=== PATIENT | male | born 1945 | race Caucasian/White ===

== ENCOUNTER 2022-09-23 21:00 | Inpatient (IN) | payer MEDICARE, OTHER, SELFPAY ==
--- NOTE | ~2022-09-23 | XR_ITS ---
EXAMINATION: XR chest 1V portable DATE: 09/24/2022 09:11 INDICATION: Shortness of breath. TECHNIQUE: A single frontal view of the chest was obtained. COMPARISON: Chest single view 09/23/2022, CT abdomen and pelvis 09/23/2022 FINDINGS: There is mild elevation of right hemidiaphragm. There is a diffuse interstitial pattern in the lungs, consistent mild pulmonary edema. There is mild atelectasis in right lower lung zone. No pl eural effusion or pneumothorax. The heart size is normal. IMPRESSION: 1. Mild pulmonary edema. 2. Mild elevation of right hemidiaphragm with mild atelectasis in right lower lung zone. Reviewed, dictated and finalized at location A. IMPRESSION: 1. Mild pulmonary edema. 2. Mild elevation of right hemidiaphragm with mild atelectasis in right lower l gene zone.
--- NOTE | ~2022-09-23 | XR_ITS ---
XR chest 1V portable 09/25/2022 09:14 Indication: Hypoxia. Shortness of breath. Procedure: AP portable chest Comparison: 09/24 and 09/23/2022 Findings: Shallow inspiration with crowding of the pulmonary vessels. There are infiltrates of the ri ght mid and lower lung which may represent atelectasis and/or pneumonia. No acute osseous abnormality . No pneumothorax. Possible small right effusion. Elevated right diaphragm is unchanged. Impression: 1: Infiltrates of the right mid and lower lung which may represent atelectasis or pneumonia. 2: Possible small right effusion. Elevated right diaphragm. Reviewed, dictated and finalized at location A. Impression: 1: Infiltrates of the right mid and lower lung which may represent atelectasis or pneumonia. 2: Possible small right effusion. Elevated right diaphragm.
--- NOTE | ~2022-09-23 | CT_ITS ---
EXAMINATION: CT abdomen pelvis w con INDICATION: Right-sided abdominal pain TECHNIQUE: Computed tomographic images of the abdomen and pelvis were obtained after the administrati on of 100 cc of Omnipaque 350 intravenous contrast. The dose-length product (DLP) was 1518.15 mGy-cm. Automated exposure control and iterative reconstruction technique were employed. COMPARISON: None available FINDINGS: Minimal dependent atelectasis is present in the lung bases. The heart size is normal. There is calcified coronary artery atherosclerosis. The liver is diffusely low in attenuation when compare d with the spleen, consistent with hepatic steatosis. The gallbladder is distended. There is perichol ecystic inflammatory change. The spleen, pancreas, and adrenal glands are normal. The kidneys are unr emarkable. No pathologically enlarged abdominal or pelvic lymph nodes are identified. No free intrape ritoneal gas or evidence of bowel obstruction. There is a small volume of pelvic ascites. The appendi x is normal. There is severe lumbar spondylosis. IMPRESSION: 1. CT findings consistent with acute cholecystitis. Reviewed, dictated and finalized at location F.
--- NOTE | ~2022-09-23 | US_ITS ---
EXAMINATION: US perc cholecystostomy w imag DATE: 09/24/2022 14:34 INDICATION: Acute cholecystitis. TECHNIQUE: The procedure including the risks, benefits, and alternatives was discussed with the patie nt. Risks discussed included bleeding and infection. Oral and written consent were obtained. A time out was performed to verify the patient's name, date of , and procedure to be performed. The sk in overlying the liver and gallbladder was prepped and draped in usual sterile fashion. Anesthetic w as administered with 1% lidocaine subcutaneously. An 8.5 Fr catheter was inserted into the gallbladd er by trocar technique. The metal stiffener and trocar needle were removed, and the pigtail tip was l ocked. Bile was aspirated and sent for culture. The catheter was stitched to the skin with suture. Th ere were no immediate complications. FINDINGS: Ultrasound images demonstrate the catheter within the gallbladder. 8 mL bile was aspirated. IMPRESSION: 1. Successful ultrasound-guided cholecystostomy tube placement. 2. 3 mL brown bile was sent for aerobic and anaerobic cultures. 3. A catheter cholangiogram may be performed not less than 48 hours after tube placement if clinicall y indicated to assess cystic duct patency. If cholecystectomy is not eventually performed and the inf ectious episode has resolved, the tube may be removed over a guidewire, preferably not less than 3 we eks after placement to allow time for a mature catheter tract to form to prevent bile leakage and per itonitis. Reviewed, dictated and finalized at location A. IMPRESSION: 1. Successful ultrasound-guided cholecystostomy tube placement. 2. 3 mL brown bile was sent for aerobic and anaerobic cultures. 3. A catheter cholangiogram may be performed not less than 48 hours after tube placement if clinically indicated to assess cystic duct patency. If cholecystec alfred is not eventually performed and the infectious episode has resolved, the t ube may be removed over a guidewire, preferably not less than 3 weeks after ovidio cement to allow time for a mature catheter tract to form to prevent bile leakag e and peritonitis.
--- NOTE | ~2022-09-23 | XR_ITS ---
EXAMINATION: XR chest 1V INDICATION: Right-sided abdominal pain TECHNIQUE: AP view of the chest is obtained. COMPARISON: None available FINDINGS: There is mild atelectasis of the lung bases. No pleural effusion or pneumothorax. The cardi omediastinal silhouette is normal. IMPRESSION: 1. Mild atelectasis of the lung bases. Reviewed, dictated and finalized at location F.
[2022-09-23 21:03] VITALS: BP 121/58; PULSE 112; RESP 22; TEMP 36.3; O2SAT 93
[2022-09-23 21:19] LABS: Basophils Percent Auto 0.2 % (0.2-1.2); Hematocrit 42.2 % (42.0-52.0); Hemoglobin 13.6 g/dL (14.0-18.0); Immature Granulocyte Percent A 0.5 % (0-0.5); Lymphocytes Absolute Auto 0.94 K/mm3 (0.9-3.2); Lymphocytes Percent Auto 5.1 % (18.3-44.2); Mean Corpuscular HGB Conc 32.2 g/dl (32-36); Mean Corpuscular Hemoglobin 29.8 pg (26-34); Mean Corpuscular Volume 92.3 fl (80-100); Monocytes Absolute Auto 0.9 K/mm3 (0.1-0.6); Monocytes Percent Auto 4.6 % (2.6-8.5); Neutrophils Absolute Auto 16.6 K/mm3 (1.3-6.7); Neutrophils Percent Auto 89.6 % (45.5-73.1); Platelet Count Result 238 k/mm3 (150-375); Red Blood Count 4.57 M/mm3 (4.6-6.20); White Blood Count 18.5 K/mm3 (4.5-10.0)
[2022-09-23 21:38] LABS: Alanine Aminotransferase 31 U/L (6-50); Albumin Level 4.1 g/dL (3.5-5.1); Alkaline Phosphatase 46 U/L (38-126); Anion Gap 8 mmol/L (8-16); Aspartate Amino Transferase 28 U/L (17-59); Bilirubin,Total 1.3 mg/dL (0.2-1.3); Blood Urea Nitrogen 12 mg/dL (9-20); Calcium 8.6 mg/dL (8.4-10.2); Carbon Dioxide 26 mmol/L (22-30); Chloride 97 mmol/L (98-107); Estimated CRCL calculation 112 ml/min; Estimated Glomerular Filt Rate > 60; Glucose 234 mg/dL (65-110); Lipase 113 U/L (23-300); Potassium 4.3 mmol/L (3.4-5.0); Sodium 131 mmol/L (137-145)
--- NOTE | 2022-09-23 22:01 | PC.NURSE ---
Pt c/o ongoing right sided abdominal pain, bloating, and nausea. Pt was evaluated at [facility] yesterday and sent home with curly and dayanna. Pt states he came in tonight because the pain hasn't improved and states pt became sweaty and seemed like he was breathing heavily. Abdomen appears distended and is firm on palpation. Bowel sounds heard in all quadrants. Last BM was two days ago. Pt denies any vomiting today. Denies fevers.
--- NOTE | 2022-09-23 22:12 | ECG_ITS ---
Measurements Intervals [place] Rate: 112 P: 43 AL: 155 QRS: 24 QRSD: 97 T: 29 QT: 340 QTc: 466 Interpretive Statements SINUS TACHYCARDIA POOR R-WAVE PROGRESSION BORDERLINE ECG NO PREVIOUS ECG AVAILABLE FOR COMPARISON Electronically Signed On 09-24-2022 12:42:14 CDT by Mikael Patel M.D.
[2022-09-23 22:23] LABS: Magnesium 1.6 mg/dL (1.6-2.3)
[2022-09-23] MEDS: SODIUM CHLORIDE 0.9% IV 2,000 ML 999 ML IV CONT (22:42)
[2022-09-23 22:52] LABS: INR 1.3; Prothrombin Time 16.4 Seconds (11.1-14.7)
[2022-09-23 22:53] LABS: Partial Thromboplastin Time 31.7 SECONDS (22.3-36.8)
[2022-09-23 22:59] VITALS: BP 159/75; PULSE 108; RESP 30; O2SAT 95
[2022-09-23] MEDS: HYDROmorphone HCL INJ (*CRX) 1 MG/ML SYR 0.5 MG IV PUSH (23:18)
[2022-09-23] MEDS: PIPERACILLN/TAZ 3.375GM/NS50ML 3.375 GM/50 ML BAG IVPB (23:19)
[2022-09-23 23:23] VITALS: BP 155/77; PULSE 104; RESP 26; O2SAT 96
[2022-09-23 23:26] LABS: Appearance Urine Clear (Clear); Bilirubin Urine Negative (Negative); Blood Urine Negative (Negative); Color Urine Yellow (Yellow); Glucose Urine UA Trace mg/dL (Negative); Ketones Urine Trace mg/dL (Negative); Leukocyte Esterase Ur Negative LEU/UL (Negative); Nitrate Urine Negative (Negative); Protein Urine 1+ mg/dL (Negative); pH Urine 5.5 (5.0-9.0)
[2022-09-23 23:28] LABS: Specific Grav Ur >= 1.099 (1.001-1.035)
--- NOTE | 2022-09-23 23:28 | ED.GENADULT ---
HPI - General Adult General Chief complaint: Abdominal Pain Stated complaint: abd pain Time Seen by Provider: 09/23/22 21:33 History of Present Illness HPI narrative: this is a 77-year-old male presenting ED with chief complaint of right upper quadrant abdominal pain. It started yesterday he was actually seen at [place] where he received lab work and a CT scan was discharged. However has proceeded to get worse. with his in the right upper quadrant, day 8 out 10 intensity and constant. He has never experienced pain like this for now exacerbating alleviating factors. It is associated with nausea and vomiting. last BM was 3 days ago, he is still passing gas. Related Data Home Medications Medication Instructions Recorded Confirmed apixaban 5 mg tablet (Eliquis) mg 09/24/22 gabapentin 600 mg tablet mg 09/24/22 lisinopril 10 mg tablet mg 09/24/22 metformin 500 mg tablet mg 09/24/22 Allergies Allergy/AdvReac Type Severity Reaction Status Date / Time No Known Allergies Allergy Verified 09/23/22 22:42 Exam Narrative: APPEARANCE: No apparent distress. Head: atraumatic. EYES: EOMI, NOSE: Atraumatic NECK: Trachea midline RESPIRATORY: No increased rate of breathing, ctab CARDIOVASCULAR: RRR, ABDOMINAL: Tenderness palpation in the right upper quadrant, voluntary guarding, no rebound tenderness MUSCULOSKELETAl: No obvious deformities NEURO: Alert. Moving 4/4 extremities SKIN:: Warm, dry. Normal color PSYCHIATRIC: Normal affect Course Vital Signs Vital signs: Vital Signs Temperature 97.4 F L 09/23/22 21:03 Pulse Rate 112 H 09/23/22 21:03 Respiratory Rate 22 H 09/23/22 21:03 Blood Pressure 121/58 L 09/23/22 21:03 Pulse Oximetry 93 09/23/22 21:03 Oxygen Delivery Room Air 09/23/22 21:03 Temperature 97.4 F L 09/23/22 21:03 Pulse Rate 104 H 09/23/22 23:23 Respiratory Rate 26 H 09/23/22 23:23 Blood Pressure 155/77 H 09/23/22 23:23 Pulse Oximetry 96 09/23/22 23:23 Oxygen Delivery Nasal Cannula 09/23/22 22:59 Oxygen Flow Rate 2 09/23/22 22:59 Medical Decision Making [facility] Narrative Medical decision making narrative: -Presentation: 77-year-old male presenting with 2 days of right sided abdominal pain. Abdominal lab work and CT abdomen pelvis have been ordered. Patient given 2 L of normal saline. 0.5 mg Dilaudid for pain -DDX includes but is not limited to: Cholecystitis/gallbladder disease, appendicitis, gastritisenteritis, -Co-morbidities complicating care: Parkinson's, CAD, HTN, DM, HL, P-Afib on eliquis (Last dose 24 hrs ago) -Social determinants of health: Retired -External Chart Review: none -Hx from independent Sources: family bedside -Discussion of Management/Consultants:Shona- Surgery, Melina - Hospitalist -Independent interpretation of studies: white count is 18.5. Metabolic panel showed slight hyponatremia and hypochloremia. Patient has been fluid resuscitated. Urine was not indicative of infection. Chest x-ray showed mild atelectasis in the lung bases. Independent EKG interpretation: Rhythm [sinus], Rate [112], [place] -[normal], ME -[normal], QRS [narrow], QTC [normal], T waves -[negative for concerning inversions], ST Segments - [Negative for concerning elevations] Final interpretations: sinus tachycardia CT abdomen pelvis was consistent with acute cholecystitis. Patient started on Pip/tazo Dx tests considered but not ordered: -Procedures: -Interventions: 2 L normal saline, 0.5 mg Dilaudid, pip/tazo -Shared decision making / Disposition: patient will be admitted to the hospital for further management of acute cholecystitis. -RX Vital Signs Vital Signs: Vital Signs Temperature 97.4 F L 09/23/22 21:03 Pulse Rate 112 H 09/23/22 21:03 Respiratory Rate 22 H 09/23/22 21:03 Blood Pressure 121/58 L 09/23/22 21:03 Pulse Oximetry 93 09/23/22 21:03 Oxygen Delivery Room Air 09/23/22 21:03 Temperature
[2022-09-23 23:29] LABS: Add Urine Microscopic? NO
[2022-09-24] VITALS (32 sets, daily range): BP systolic 106–174; BP diastolic 60–105; PULSE 88–156; RESP 16–44; TEMP 36.1–39.9; O2SAT 80–99; BMI 38.7
--- NOTE | 2022-09-24 | ECHO_ITS ---
Patient Info Name: Ted Barboza Age: 77 years : 1945 Gender: Male Ht: 69 in Wt: 262 lbs BSA: 2.46 m2 HR: 108 bpm BP: 153 / 105 mmHg Heart Rhythm: Sinus Rhythm Technical Quality: Fair Exam Date: 09/24/2022 10:58 AM Exam Location: [facility] Pulmonary Exam Room: ICU3 Patient Status: Inpatient Admit Date: 09/24/2022 Staff Ordering Physician: Hugo Gaxiola MD Pomologist: Allison Jackson RDCS Attending Provider: Tracy Summers DO Exam Type: CA echo dop color flow w con Study Info Indications - CHF ACUTE RESP FAILURE Complete two-dimensional, color flow and Doppler transthoracic echocardiogram is performed with contrast to opacify the left ventricle and to improve the deliniation of the left ventricle endocardial borders. Contrast/Agitated Saline Contrast/Ag. Saline: Definity Amount: 2.00 ml Administered By: Allison Jackson [facility] Existing IV Access: Yes IV Access Condition: patent with no signs of infiltration Summary 1. Technically difficult examination, definity contrast used to improve visualization. 2. Normal left ventricular size with mildly reduced global systolic function ejection fraction 45-50%. 3. Sclerotic but nonstenotic aortic valve. 4. Mildly enlarged left atrium. Left Ventricle Left ventricular chamber dimension is normal. Left ventricular systolic function is mildly reduced, estimated at 45-50%. The left ventricular diastolic function is grade I diastolic dysfunction. Right Ventricle Right ventricular chamber dimension is normal. Left Atria Left atrial chamber dimension is mildly enlarged. Right Atria Right atrial chamber dimension is normal. Aortic Valve The aortic valve is trileaflet. There is mild aortic valve sclerosis. Pulmonic Valve The pulmonic valve is not well visualized. Mitral Valve The mitral valve has normal leaflets. Tricuspid Valve The tricuspid valve leaflets are not well visualized. Pericardium/Pleural The pericardium appears normal. Aorta The aortic root size at the sinus of Valsalva is normal. Left Ventricular Outflow Tract Name Value Normal LVOT 2D LVOT Diameter 2.05 cm LVOT Doppler LVOT Peak Gradient 5 mmHg LVOT Mean Gradient 4 mmHg LVOT VTI 19.06 cm LVOT VTI/AV VTI Ratio 1.06 LVOT Stroke Volume 63.11 ml LVOT CO 18.26 l/min LVOT CI 7.43 L/min/m2 Pulmonic Valve Name Value Normal RVOT Doppler RVOT Peak Gradient 1 mmHg PV Doppler PV Peak Gradient 2 mmHg Mitral Valve Name Value Normal
--- NOTE | 2022-09-24 01:46 | ADMGEN ---
This patient, Ted Louis, was admitted to Medical Room 250-01. Patient/family oriented to hospital policies and general routines including ID bracelet, bed and alarms, visiting hours, pain management, procedures, bathroom and other care routines, personal items, smoking policy, room service/diet, and visiting hours. Information on how to activate the Rapid Response Team has been discussed. Patient/Family are encouraged to report perceived risks to care and to ask questions if they do not understand what they are told or what they should do.
[2022-09-24] MEDS: SODIUM CHLORIDE 0.9% IV 1,000 ML 999 ML IV CONT (02:30)
[2022-09-24] MEDS: SODIUM CHLORIDE 0.9% IV 1,000 ML 100 ML IV CONT (03:31)
--- NOTE | 2022-09-24 04:27 | PM.IMHP ---
H&P: HPI History of Present Illness Date/Time: 09/24/22 04:27 Chief Complaint: Abdominal pain Narrative: 77-year-old male with a past medical history of paroxysmal atrial fibrillation, chronic anticoagulation, coronary disease,COPD, type 2 diabetes mellitus, and untreated obstructive sleep apnea who presented to the ER from home via private vehicle due to right-sided abdominal pain. The patient reports that he has been having right-sided abdominal pain for 5-6 days. He went to [place] [facility] on Tuesday night and had a CT of his abdomen pelvis performed and labs obtained which were unremarkable. He was discharged home with Zofran and dicyclomine. The patient reports that he has not had any appetite for at least 3-4 days. He has not had a bowel movement in 3 days. He did have some vomiting on Tuesday when he went to [facility] but the a nausea meds did seem to help with that. The dicyclomine did not seem to help with his pain. His pain was moderately severe in intensity and aching and cramping in nature. The pain was constant. He does think the pain was worse after he would try to eat or drink anything. He reported that he did try some Tylenol at home as well but that seemed to really set his pain off . He denies any hematemesis or coffee-ground emesis. He denies bilious emesis. He has had decreased urine output but denies any dysuria. He denies any sensation of incomplete bladder emptying. He reports that he has been having increasing shortness of breath and has been wheezing almost constantly for the last 6-8 weeks. He states that he does have rescue inhalers at home but he has not tried them to help with his respiratory symptoms. he has chronic postnasal drip and chronic cough that is unchanged from baseline. He denies any known fevers or chills. But this time of my evaluation the patient was hot to touch. On exam the patient had exquisite right upper quadrant tenderness and CT scan performed in the ER was suggestive of acute cholecystitis. Patient does have baseline diabetes and glucoses were 234 in the ER. The patient reports that his last A1c 2 months ago had improved from 8.4 down to 7.4. He does have diabetic neuropathy and takes Neurontin for his foot pain. He reports that his abdominal pain was improved after he received Dilaudid in the ER. He denies any history of prior abdominal surgery. Review of Systems Review of Systems: 12 systems were reviewed with pertinent positives and negatives per HPI. Except as documented in the HPI, all other systems were reviewed and are negative. [facility] Past Medical History Medical History (Updated 09/24/22 @ 05:16 by Tracy Summers DO) Atrial fibrillation status post ablation COPD (chronic obstructive pulmonary disease) Coronary artery disease Diabetic neuropathy Essential hypertension Hearing loss of aging Hyperlipidemia Obstructive sleep apnea intolerant to CPAP Parkinsons disease Type 2 diabetes mellitus Surgical History Surgical History (Updated 09/24/22 @ 04:47 by Tracy Summers DO) History of bilateral knee replacement History of coronary artery stent placement 2009 stent was placed stent became occluded in 2013 and subsequent 2nd stent was placed managed by Dr. Olsen at [place] History of sinus surgery History of surgical removal of pilonidal cyst Family History Family History Father Parkinson disease Alzheimer disease Mother Dementia Social History Social History (Updated 09/24/22 @ 05:12 by Tracy Summers DO) Social History: He lives at home with his of 46 years. 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 He quit smoki
[2022-09-24 05:16] LABS: Basophils Percent Auto 0.2 % (0.2-1.2); Hematocrit 40.7 % (42.0-52.0); Immature Granulocyte Absolute 0.06 K/mm3 (0.00-0.031); Immature Granulocyte Percent A 0.4 % (0-0.5); Lymphocytes Absolute Auto 1.21 K/mm3 (0.9-3.2); Lymphocytes Percent Auto 7.2 % (18.3-44.2); Mean Corpuscular HGB Conc 31.9 g/dl (32-36); Mean Corpuscular Hemoglobin 29.8 pg (26-34); Mean Corpuscular Volume 93.3 fl (80-100); Mean Platelet Volume 10.3 fl (7.4-10.4); Monocytes Absolute Auto 0.7 K/mm3 (0.1-0.6); Monocytes Percent Auto 4.2 % (2.6-8.5); Neutrophils Absolute Auto 14.7 K/mm3 (1.3-6.7); Platelet Count Result 219 k/mm3 (150-375); Red Blood Count 4.36 M/mm3 (4.6-6.20); Red Cell Distribution Width 13.2 % (11.5-14.5); White Blood Count 16.7 K/mm3 (4.5-10.0)
[2022-09-24 05:27] LABS: INR 1.3; Prothrombin Time 16.5 Seconds (11.1-14.7)
[2022-09-24 05:28] LABS: Partial Thromboplastin Time 29.4 SECONDS (22.3-36.8)
[2022-09-24 05:30] LABS: Lactic Acid Reflex 1.4 mmol/L (0.7-2.0)
[2022-09-24 05:37] LABS: Alanine Aminotransferase 25 U/L (6-50); Albumin Level 3.5 g/dL (3.5-5.1); Alkaline Phosphatase 38 U/L (38-126); Anion Gap 5 mmol/L (8-16); Aspartate Amino Transferase 25 U/L (17-59); Bilirubin,Total 1.1 mg/dL (0.2-1.3); Blood Urea Nitrogen 10 mg/dL (9-20); Calcium 7.8 mg/dL (8.4-10.2); Carbon Dioxide 28 mmol/L (22-30); Chloride 101 mmol/L (98-107); Estimated CRCL calculation 113 ml/min; Estimated Glomerular Filt Rate > 60; Glucose 191 mg/dL (65-110); Potassium 4.1 mmol/L (3.4-5.0); Sodium 134 mmol/L (137-145)
[2022-09-24] MEDS: PIPERACILLN/TAZ 3.375GM/NS50ML 3.375 GM/50 ML BAG IVPB ×3 (05:44→17:06)
[2022-09-24] MEDS: INSULIN ASPART (*BKC) 100 UNITS/ML SUB-Q ×2 (05:51→12:04)
[2022-09-24 06:10] LABS: Glucose Point of Care 201 mg/dl (65-105)
[2022-09-24] MEDS: MORPHINE SULFATE (*CRX) 2 MG/ML INJ IV PUSH (07:40)
[2022-09-24] MEDS: IPRATROPIUM BR 0.02% INH SOLN 0.5 MG/2.5 ML VIAL INHALATION ×3 (08:09→20:01)
[2022-09-24] MEDS: ALBUTEROL SULFATE NEB 2.5 MG/3 ML INH 5 MG INHALATION ×3 (08:09→20:01)
--- NOTE | 2022-09-24 08:15 | PCRCNOTE ---
during 0800 rounds, RT found pt in acute respiratory distress. pt wheezing, abdominal breathing, using accessory muscles. pt 02 found at 1L satting at 80%. RT immediately started UPD treatment where pt increased in sp02 to 90%. pt pulling clothes off, blankets off, rolling in bed. RN called. waiting for response. MD will need to see pt MARTY.
[2022-09-24] MEDS: SOTALOL HCL 80 MG TABLET PO ×2 (08:33→20:19)
--- NOTE | 2022-09-24 08:35 | ECG_ITS ---
Measurements Intervals [place] Rate: 148 P: 35 DE: 129 QRS: 28 QRSD: 85 T: 51 QT: 294 QTc: 462 Interpretive Statements SINUS TACHYCARDIA, POSSIBLE ATRIAL FLUTTER. BASELINE MOTION ARTIFACT RESULTS AND DIFFICULT DIAGNOSIS OF ATRIAL RHYTHM SEPTAL MYOCARDIAL INFARCTION , OF INDETERMINATE AGE [40+ ms Q WAVE IN V1/V2] COMPARED TO ECG 09/23/2022 22:44:36 HEART RATE IS INCREASED, POSSIBLY IN ATYPICAL ATRIAL FLUTTER/DIFFICULT BASELINE FOR ATRIAL RHYTHM DIAGNOSIS Electronically Signed On 09-24-2022 12:51:34 CDT by Mikael Patel M.D.
[2022-09-24 08:42] LABS: Alveolar/Arterial O2 Gradient 574.2 mmHg; Base Excess ABG -3.4 mEq/l (+/-2.0); Fractional Inspired Oxygen 100 %; HCO3 ABG 24.3 mEq/l (22.0-26.0); Methemoglobin ABG 0.5 %THb (0-1.5); Oxygen Content ABG 19.8 %vol (16.0-22.0); Oxyhemoglobin 93.6 % THb (90.0-100.0); PCO2 ABG 53.8 mmHg (35.0-45.0); PO2 FiO2 Ratio Arterial Blood 0.85 %; Reduced Hemoglobin 4.9 %THb (0-5.0)
[2022-09-24 08:45] LABS: Device NON-REBREATHER MASK; Modified Allen's Test Unable to perform; Site Drawn RIGHT RADIAL; pH ABG 7.272 (7.350-7.450)
--- NOTE | 2022-09-24 09:00 | PM.IMPN ---
Progress Note: A&P Assessment and Plan (1) Acute respiratory failure: Code(s): J96.00 - Acute respiratory failure, unspecified whether with hypoxia or hypercapnia Status: Acute Assessment and Plan: Patient has developed acute respiratory failure this morning. He did receive 3 L of IV fluid in the ED so consider pulmonary edema is etiology. Stat ABG shows 7.27/54/85; numbers not consistent with purely resp acidosis and suspect metabolic acidosis. He was placed on BiPAP. Consider ARDS from sepsis. Consider aspiration. COPD exacerbation seems less likely. Check BCx, lactic acid, PCT and baseline labs. Discussed with experience designer and appreciate their input. Consider lasix. Echo ordered. (2) Acute cholecystitis: Code(s): K81.0 - Acute cholecystitis Status: Acute Assessment and Plan: The patient has CT findings and physical exam consistent with acute cholecystitis. The patient was made NPO. He was started on Zosyn. WBC was 18K but trending down this morning. Will repeat labs. Check BCx. Continue Zosyn. Plan for drain given the change in his clinic status. GenSurg following and appreciate their input. (3) COPD with exacerbation: Code(s): J44.1 - Chronic obstructive pulmonary disease with (acute) exacerbation Status: Acute Assessment and Plan: The patient had evidence of acute COPD exacerbation with symptoms over the last 6-8 weeks. He was placed on scheduled nebulizers with albuterol and Atrovent. Patient would benefit from inhaled corticosteroid/ long-acting beta agonist on discharge for chronic control of his COPD. Continue nebs. (4) Atrial fibrillation: Code(s): I48.91 - Unspecified atrial fibrillation Status: Acute Assessment and Plan: Patient has a hx of AFib but EKG more consistent with sinus tachycardia related to the fever and resp distress. metoprolol IV once given with improvement. Sotalol continued but currently on hold until he has improvement. Also on metoprolol on home med list. Will need this verified. Monitor closely on tele. (5) Type 2 diabetes mellitus with hyperglycemia, without long-term current use of insulin: Code(s): E11.65 - Type 2 diabetes mellitus with hyperglycemia Status: Acute Assessment and Plan: A1c of 7.4%. The patient's blood glucose was reviewed on 09/24 Glucose remains elevated. Continue AccuCheks covering with sliding scale. Hypoglycemia protocol available as needed. Contine to monitor (6) Parkinsons disease: Code(s): G20 - Parkinson's disease Status: Acute Assessment and Plan: Stable. Resume Sinemet when able. Consider aspiration as the etiology of his respiratory failure. (7) Essential hypertension: Code(s): I10 - Essential (primary) hypertension Status: Acute Assessment and Plan: Patient's blood pressure was reviewed on 09/24 Blood pressure elevated related to fever, resp failure. Will continue above treatment. (8) Obstructive sleep apnea: Code(s): G47.33 - Obstructive sleep apnea (adult) (pediatric) Status: Acute Assessment and Plan: Patient has untreated RAJAN probably contributing to his above symptoms. Further assessment once he is more stable. He may benefit from nocturnal O2. (9) Dehydration: Code(s): E86.0 - Dehydration Status: Acute Assessment and Plan: Patient received 3L IV fluids in ED. May be contributing to his respiratory distress. IV fluids stopped. Plan DVT Prophylaxis - Heparin Code status - Full Critical care time: 45 minutes Subjective Date/time seen: 09/24/22 09:00 Interval history: 77yo male with pAFib on chronic anticoagulation,?CAD, COPD, untreated RAJAN and DM who presented to the ER from home via private vehicle due to right-sided abdominal pain.? Called to the room for rapid response. Patient is tachypneic and in respiratory distress which limited hx. H
--- NOTE | 2022-09-24 09:25 | WPDCNINT ---
Assessment and Plan Assessment and plan (1) Acute respiratory failure: Code(s): J96.00 - Acute respiratory failure, unspecified whether with hypoxia or hypercapnia Status: Acute Assessment and Plan: Acute Respiratory failure secondary to likely pulmonary edema although patient also has COPD and sleep apnea at baseline Patient received 3 L of IV fluids on admission for sepsis for acute cholecystitis Pulmonary edema may be have been precipitated by tachycardia Chest x-ray shows pulmonary edema and atelectasis ABG shows respiratory acidosis and hypercarbia Patient placed on BiPAP at this time 15/8 at 50% FiO2. Denies any nausea vomiting at this time Remains at risk for intubation and mechanical ventilation if he further deteriorates or does not improve Hold further IV fluids Bronchodilators Hold steroids as patient does not exhibit any significant wheezing at this time Check echocardiogram, BNP Patient is on broad-spectrum antibiotics to cover for cholecystitis Repeat ABG ordered (2) Acute cholecystitis: Code(s): K81.0 - Acute cholecystitis Status: Acute Assessment and Plan: Consult intervention Radiology for ultrasound-guided cholecystostomy drain placement Empiric Zosyn at this time Patient evaluated by General surgery NPO Pain control (3) Sepsis: Code(s): A41.9 - Sepsis, unspecified organism Status: Acute Assessment and Plan: Secondary to acute cholecystitis Lactic acid normal and blood pressure adequate at this time Patient received 3 L of fluids initially but will hold further fluids due to concern of pulmonary edema Management of cholecystitis as above (4) Type 2 diabetes mellitus with hyperglycemia, without long-term current use of insulin: Code(s): E11.65 - Type 2 diabetes mellitus with hyperglycemia Status: Acute Assessment and Plan: Sliding scale insulin at this time NPO (5) Obstructive sleep apnea: Code(s): G47.33 - Obstructive sleep apnea (adult) (pediatric) Status: Acute Assessment and Plan: Currently on BiPAP (6) Atrial fibrillation: Code(s): I48.91 - Unspecified atrial fibrillation Status: Acute Assessment and Plan: History of atrial fibrillation currently in sinus tachycardia IV Lopressor until patient can take p.o. Resume p.o. metoprolol and Lopressor Hold anticoagulation for invasive procedures. Patient states that he has not taken his Eliquis since Tuesday Aspirin (7) Parkinsons disease: Code(s): G20 - Parkinson's disease Status: Acute Assessment and Plan: Resume Sinemet when patient is able to take p.o. (8) Pulmonary edema: Code(s): J81.1 - Chronic pulmonary edema Status: Acute Assessment and Plan: Hold further IV fluids Check echo and BNP level Plan DVT prophylaxis -SCDs Stress ulcer prophylaxis -PPI Nutrition -NPO Code Status - Full Code Total Critical Care Time - minutes Due to a high probability of clinically significant, life threatening deterioration, the patient required my highest level of preparedness to intervene emergently and I personally spent this critical care time directly and personally managing the patient. This critical care time included obtaining a history; examining the patient; pulse oximetry; ordering and review of studies; arranging urgent treatment with development of a management plan; evaluation of patient's response to treatment; frequent reassessment; and discussions with other providers. It was exclusive of separately billable procedures and treating other patients and teaching time. 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
--- NOTE | 2022-09-24 09:28 | PM.CNGS ---
Assessment and Plan Assessment and plan (1) Acute cholecystitis: Code(s): K81.0 - Acute cholecystitis Status: Acute Assessment and Plan: I have reviewed the CT and discussed the findings with the patient. He has had abdominal pain for 5 days and imaging is showing signs of acute cholecystitis. With the duration of his symptoms and his current condition, he is very high risk for perioperative complications, morbidity, and mortality. He also has been on Eliquis which increases bleeding risks with surgery. I agree with plan for percutaneous cholecystostomy tube placement today to help gain source control of sepsis. Continue IV Zosyn and antipyretics. Will continue to follow patient for cholecystostomy tube care. Discussed with patient that once this infectious episode has resolved, could consider laparoscopic cholecystectomy as a planned interval procedure 4-6 weeks later. (2) Sepsis: Qualifiers: Sepsis type: sepsis due to unspecified organism Sepsis acute organ dysfunction status: with acute organ dysfunction Severe sepsis acute organ dysfunction type: acute respiratory failure Acute respiratory failure type: with hypoxia Severe sepsis shock status: without septic shock Qualified Code(s): A41.9 - Sepsis, unspecified organism; R65.20 - Severe sepsis without septic shock; J96.01 - Acute respiratory failure with hypoxia Code(s): A41.9 - Sepsis, unspecified organism Status: Acute Assessment and Plan: febrile with leukocytosis and tachypnea (3) Atrial fibrillation with RVR: Code(s): I48.91 - Unspecified atrial fibrillation Status: Acute (4) Acute respiratory failure: Code(s): J96.00 - Acute respiratory failure, unspecified whether with hypoxia or hypercapnia Status: Acute (5) Type 2 diabetes mellitus with hyperglycemia, without long-term current use of insulin: Code(s): E11.65 - Type 2 diabetes mellitus with hyperglycemia Status: Acute (6) Obstructive sleep apnea: Code(s): G47.33 - Obstructive sleep apnea (adult) (pediatric) Status: Acute (7) COPD with exacerbation: Code(s): J44.1 - Chronic obstructive pulmonary disease with (acute) exacerbation Status: Acute (8) Hypoxia: Code(s): R09.02 - Hypoxemia Status: Acute (9) long-term current use of anticoagulant: Code(s): Z79.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 Could resume therapeutic Lovenox 24-48 hours after cholecystostomy tube placed if otherwise hemodynamically stable and not needing surgery. History of Present Illness Consult details Consult date: 09/24/22 Reason for consult: other (Acute cholecystitis) Requesting physician: Steven Salvador MD Narrative: This is a 77-year-old man who I am asked to see for acute cholecystitis. He presented to the emergency department last night with worsening abdominal pain. He also began experiencing fevers and chills. The patient states that his symptoms started 5 days ago. He had never had symptoms like this in the past. He went to [facility] on 09/22/2022 and workup there was reportedly normal. He continued to have symptoms and then decided to present to [facility] yesterday. He was noted to have signs of sepsis with tachycardia, tachypnea, and fevers. He has been transferred to the ICU this morning due to worsening respiratory distress. He was started on IV Zosyn and fluid resuscitated with 3 L of crystalloid. His blood pressure is currently normal but he is in rapid AFib and still febrile. Review of Systems Review of Systems: All systems reviewed & are unremarkable except as noted in HPI and below Constitutional: Constitutional: Reports chills and Reports fever(s) Cardiovascular: Cardiovascular: Denies chest pain and Reports dyspnea Respiratory: Respiratory: Reports dyspnea Gastrointestinal:
--- NOTE | 2022-09-24 09:38 | PC.NURSE ---
This patient, Ted Louis, was received from [facility] on 09/24/22 at 0845. Patient/family oriented to unit policies and routines
[2022-09-24 09:45] LABS: Basophils Percent Auto 0.3 % (0.2-1.2); Hematocrit 42.8 % (42.0-52.0); Hemoglobin 13.4 g/dL (14.0-18.0); Immature Granulocyte Absolute 0.04 K/mm3 (0.00-0.031); Immature Granulocyte Percent A 0.4 % (0-0.5); Lymphocytes Absolute Auto 0.29 K/mm3 (0.9-3.2); Lymphocytes Percent Auto 2.8 % (18.3-44.2); Mean Corpuscular HGB Conc 31.3 g/dl (32-36); Mean Corpuscular Hemoglobin 30.2 pg (26-34); Mean Corpuscular Volume 96.6 fl (80-100); Mean Platelet Volume 10.1 fl (7.4-10.4); Monocytes Absolute Auto 0.2 K/mm3 (0.1-0.6); Monocytes Percent Auto 1.7 % (2.6-8.5); Neutrophils Absolute Auto 9.7 K/mm3 (1.3-6.7); Neutrophils Percent Auto 94.8 % (45.5-73.1); Platelet Count Result 198 k/mm3 (150-375); Red Blood Count 4.43 M/mm3 (4.6-6.20); Red Cell Distribution Width 13.2 % (11.5-14.5); White Blood Count 10.2 K/mm3 (4.5-10.0)
[2022-09-24] MEDS: METOPROLOL TARTRATE INJ 5 MG/5 ML VIAL IV PUSH (09:45)
--- NOTE | 2022-09-24 09:45 | PC.NURSE ---
Care coordination notified of patient need for help paying for medications
[2022-09-24 09:53] LABS: INR 1.4; Prothrombin Time 17.5 Seconds (11.1-14.7)
[2022-09-24 09:54] LABS: Partial Thromboplastin Time 29.1 SECONDS (22.3-36.8)
[2022-09-24 10:04] LABS: Lactic Acid Reflex 2.6 mmol/L (0.7-2.0)
[2022-09-24 10:08] LABS: Alveolar/Arterial O2 Gradient 167.3 mmHg; Base Excess ABG -1.4 mEq/l (+/-2.0); Carboxyhemoglobin 0.9 % THb (0-2.0); Fractional Inspired Oxygen 40 %; HCO3 ABG 23.8 mEq/l (22.0-26.0); Methemoglobin ABG 0.3 %THb (0-1.5); Oxygen Content ABG 18.6 %vol (16.0-22.0); Oxygen Saturation ABG 93.6 % (95.0-100.0); Oxyhemoglobin 92.7 % THb (90.0-100.0); PCO2 ABG 41.8 mmHg (35.0-45.0); PO2 ABG 69.8 mmHg (80.0-100.0); PO2 FiO2 Ratio Arterial Blood 1.75 %; Reduced Hemoglobin 6.1 %THb (0-5.0); Total Hemoglobin 14.3 g/dL (12.0-18.0); pH ABG 7.373 (7.350-7.450)
[2022-09-24 10:11] LABS: Device NON-INVASIVE VENT; Modified Allen's Test Pass; Non-Invasive Expiratory Pressure 8 CMH2O; Non-Invasive Inspiratory Pressure 15 CMH2O; Non-Invasive Vent Rate 16 /MIN; Site Drawn LEFT RADIAL
--- NOTE | 2022-09-24 10:14 | PCRCNOTE ---
RT notified Dr. Gaxiola of ABG results. Patient was on BIPAP 30/11 R16 40% during time of ABG draw. Dr. Gaxiola stated to keep Patient on current settings.
[2022-09-24 10:19] LABS: Procalcitonin 3.4 ng/mL
[2022-09-24 10:19] LABS: Troponin I 0.084 ng/mL (0.000-0.034)
[2022-09-24 10:20] LABS: NT Pro B Type Natriuretic Pept 7080 pg/mL (19.9-100)
[2022-09-24 10:28] LABS: Alanine Aminotransferase 25 U/L (6-50); Albumin Level 3.1 g/dL (3.5-5.1); Alkaline Phosphatase 50 U/L (38-126); Anion Gap 9 mmol/L (8-16); Aspartate Amino Transferase 24 U/L (17-59); Bilirubin,Total 1.4 mg/dL (0.2-1.3); Blood Urea Nitrogen 10 mg/dL (9-20); Calcium 7.7 mg/dL (8.4-10.2); Carbon Dioxide 24 mmol/L (22-30); Chloride 101 mmol/L (98-107); Estimated CRCL calculation 98 ml/min; Estimated Glomerular Filt Rate > 60; Glucose 195 mg/dL (65-110); Lipase 29 U/L (23-300); Magnesium 1.4 mg/dL (1.6-2.3); Potassium 3.8 mmol/L (3.4-5.0); Sodium 134 mmol/L (137-145)
[2022-09-24 10:37] LABS: CRP 34.5 mg/dL (<1.0)
[2022-09-24] MEDS: PERFLUTREN LIPID MICROSPHERES 1.5 ML VIAL DILUTED TO 10 ML TOTAL VOLUME IV PUSH (11:20)
[2022-09-24 12:04] LABS: Glucose Point of Care 227 mg/dl (65-105)
[2022-09-24 12:39] LABS: Reflex Lactic Acid Yes or No Add Lactic
--- NOTE | 2022-09-24 12:47 | PC.NURSE ---
At 0820 called to room by respiratory, the pt had labored respirations, O2 sat of 78%, HR 165. Pt was placed on a khadra mask, stats improved but respirations continued to be labored. Called rapid response at 0825. Transferred to ICU room 3 at 0845.
[2022-09-24 12:48] LABS: Troponin I 0.115 ng/mL (0.000-0.034)
[2022-09-24] MEDS: CARBIDOPA/LEVODOPA 12.5/50 MG 1 TABLET, CARBIDOPA/LEVODOPA 25/100 MG 1 TABLET 2 TABLET PO ×2 (14:00→17:54)
[2022-09-24] MEDS: ASPIRIN 325 MG ENTERIC TABLET PO (14:00)
[2022-09-24] MEDS: MAGNESIUM SULF 2 GM/WATER 50ML 2 GM/50 ML BAG IVPB (14:01)
[2022-09-24 15:36] LABS: Lactic Acid 2.1 mmol/L (0.7-2.0)
[2022-09-24 15:55] LABS: Troponin I 0.071 ng/mL (0.000-0.034)
[2022-09-24 17:32] LABS: Glucose Point of Care 174 mg/dl (65-105)
[2022-09-24 20:22] LABS: Glucose Point of Care 158 mg/dl (65-105)
[2022-09-25] VITALS (20 sets, daily range): BP systolic 96–144; BP diastolic 66–84; PULSE 80–107; RESP 17–28; TEMP 35.5–38.2; O2SAT 90–100
[2022-09-25] MEDS: PIPERACILLN/TAZ 3.375GM/NS50ML 3.375 GM/50 ML BAG IVPB ×4 (00:15→17:33)
[2022-09-25 00:20] LABS: Glucose Point of Care 152 mg/dl (65-105)
[2022-09-25] MEDS: ALBUTEROL SULFATE NEB 2.5 MG/3 ML INH 5 MG INHALATION ×4 (01:37→20:20)
[2022-09-25] MEDS: IPRATROPIUM BR 0.02% INH SOLN 0.5 MG/2.5 ML VIAL INHALATION ×4 (01:37→20:20)
[2022-09-25 05:32] LABS: Basophils Percent Auto 0.2 % (0.2-1.2); Eosinophils Percent Auto 0.1 % (0-4.4); Hematocrit 37.5 % (42.0-52.0); Hemoglobin 12.1 g/dL (14.0-18.0); Immature Granulocyte Absolute 0.08 K/mm3 (0.00-0.031); Immature Granulocyte Percent A 0.7 % (0-0.5); Lymphocytes Absolute Auto 0.86 K/mm3 (0.9-3.2); Lymphocytes Percent Auto 7.6 % (18.3-44.2); Mean Corpuscular HGB Conc 32.3 g/dl (32-36); Mean Corpuscular Hemoglobin 30.4 pg (26-34); Mean Corpuscular Volume 94.2 fl (80-100); Mean Platelet Volume 10.3 fl (7.4-10.4); Monocytes Absolute Auto 0.5 K/mm3 (0.1-0.6); Monocytes Percent Auto 4.3 % (2.6-8.5); Neutrophils Absolute Auto 9.9 K/mm3 (1.3-6.7); Neutrophils Percent Auto 87.1 % (45.5-73.1); Platelet Count Result 187 k/mm3 (150-375); Red Blood Count 3.98 M/mm3 (4.6-6.20); Red Cell Distribution Width 13.3 % (11.5-14.5); White Blood Count 11.3 K/mm3 (4.5-10.0)
[2022-09-25 05:42] LABS: Alanine Aminotransferase 15 U/L (6-50); Albumin Level 3.1 g/dL (3.5-5.1); Alkaline Phosphatase 42 U/L (38-126); Anion Gap 3 mmol/L (8-16); Aspartate Amino Transferase 21 U/L (17-59); Bilirubin,Total 0.8 mg/dL (0.2-1.3); Blood Urea Nitrogen 17 mg/dL (9-20); Calcium 7.5 mg/dL (8.4-10.2); Carbon Dioxide 29 mmol/L (22-30); Chloride 100 mmol/L (98-107); Estimated CRCL calculation 98 ml/min; Estimated Glomerular Filt Rate > 60; Glucose 153 mg/dL (65-110); Magnesium 2.4 mg/dL (1.6-2.3); Phosphorus 2.5 mg/dL (2.5-4.5); Potassium 3.8 mmol/L (3.4-5.0); Sodium 132 mmol/L (137-145)
[2022-09-25 09:03] LABS: Glucose Point of Care 171 mg/dl (65-105)
[2022-09-25] MEDS: CARBIDOPA/LEVODOPA 25/100 MG TABLET 2 TABLET PO ×3 (09:03→17:32)
[2022-09-25] MEDS: SOTALOL HCL 80 MG TABLET PO ×2 (09:03→20:20)
[2022-09-25] MEDS: PANTOPRAZOLE SODIUM IV 40 MG VIAL IV PUSH (09:03)
[2022-09-25] MEDS: ASPIRIN 325 MG ENTERIC TABLET PO (09:04)
[2022-09-25] MEDS: APIXABAN 5 MG TABLET PO ×2 (09:08→20:20)
--- NOTE | 2022-09-25 09:09 | WPDINTPN ---
Progress Note: A&P Assessment and Plan (1) Acute respiratory failure: Code(s): J96.00 - Acute respiratory failure, unspecified whether with hypoxia or hypercapnia Status: Acute Assessment and Plan: Acute Respiratory failure secondary to likely pulmonary edema although patient also has COPD and sleep apnea at baseline Patient received 3 L of IV fluids on admission for sepsis for acute cholecystitis Pulmonary edema may be have been precipitated by tachycardia Chest x-ray showed pulmonary edema and atelectasis ABG shows respiratory acidosis and hypercarbia Patient was placed on BiPAP at this time 30/11 at 50% FiO2. Repeat ABG improved He has improved and now down to nasal cannula 2 L Continue BiPAP p.r.n. at night as patient also has sleep apnea Bronchodilators Continue to hold steroids as patient does not exhibit any significant wheezing at this time echocardiogram, BNP reviewed Hold IV fluid Patient is on broad-spectrum antibiotics to cover for cholecystitis Incentive spirometry, up in chair (2) Acute cholecystitis: Code(s): K81.0 - Acute cholecystitis Status: Acute Assessment and Plan: Status post ultrasound-guided cholecystostomy drain placement on 09/24 Culture sent empiric Zosyn at this time Patient evaluated by General surgery Clear liquid diet advance as tolerated Pain control (3) Sepsis: Qualifiers: Sepsis type: sepsis due to unspecified organism Sepsis acute organ dysfunction status: with acute organ dysfunction Severe sepsis acute organ dysfunction type: acute respiratory failure Acute respiratory failure type: with hypoxia Severe sepsis shock status: without septic shock Qualified Code(s): A41.9 - Sepsis, unspecified organism; R65.20 - Severe sepsis without septic shock; J96.01 - Acute respiratory failure with hypoxia Code(s): A41.9 - Sepsis, unspecified organism Status: Acute Assessment and Plan: Secondary to acute cholecystitis Patient received 3 L of fluids initially but will hold further fluids as he developed pulmonary edema Management of cholecystitis as above (4) Type 2 diabetes mellitus with hyperglycemia, without long-term current use of insulin: Code(s): E11.65 - Type 2 diabetes mellitus with hyperglycemia Status: Acute Assessment and Plan: Sliding scale insulin (5) Obstructive sleep apnea: Code(s): G47.33 - Obstructive sleep apnea (adult) (pediatric) Status: Acute Assessment and Plan: BiPAP at night (6) Atrial fibrillation: Code(s): I48.91 - Unspecified atrial fibrillation Status: Acute Assessment and Plan: History of atrial fibrillation currently in sinus tachycardia Heart rate improved IV Lopressor p.r.n. ordered Continue home sotalol Resume Eliquis Aspirin (7) Parkinsons disease: Code(s): G20 - Parkinson's disease Status: Acute Assessment and Plan: Continue sinemet (8) Pulmonary edema: Code(s): J81.1 - Chronic pulmonary edema Status: Acute Assessment and Plan: Hold further IV fluids BNP level 7080 Echo 09/24 Summary ? 1. Technically difficult examination, definity contrast used to improve visualization. ? 2. Normal left ventricular size with mildly reduced global systolic function ejection fraction 45-50%. ? 3. Sclerotic but nonstenotic aortic valve. ? 4. Mildly enlarged left atrium. Plan DVT prophylaxis -resume Eliquis Stress ulcer prophylaxis -PPI Nutrition -clear liquid diet advance as tolerated Code Status - Full Code Total Critical Care Time - 30 minutes Due to a high probability of clinically significant, life threatening deterioration, the patient required my highest level of preparedness to intervene emergently and I personally spent this critical care time directly and personally managing the patient. This critical care time included obtaining a history; examining the patient; pulse oximetry; ordering and review of st
--- NOTE | 2022-09-25 10:26 | PM.PNGS ---
Progress Note: A&P Assessment and Plan (1) Acute cholecystitis: Code(s): K81.0 - Acute cholecystitis Status: Acute Assessment and Plan: Improving after cholecystostomy tube placement 09/24/22 Continue antibiotics Blood cultures and bile cultures pending Advance diet as tolerated (2) Sepsis: Qualifiers: Sepsis type: sepsis due to unspecified organism Sepsis acute organ dysfunction status: with acute organ dysfunction Severe sepsis acute organ dysfunction type: acute respiratory failure Acute respiratory failure type: with hypoxia Severe sepsis shock status: without septic shock Qualified Code(s): A41.9 - Sepsis, unspecified organism; R65.20 - Severe sepsis without septic shock; J96.01 - Acute respiratory failure with hypoxia Code(s): A41.9 - Sepsis, unspecified organism Status: Acute Assessment and Plan: improved with antibiotics and source control (3) Acute respiratory failure: Code(s): J96.00 - Acute respiratory failure, unspecified whether with hypoxia or hypercapnia Status: Acute (4) Atrial fibrillation with RVR: Code(s): I48.91 - Unspecified atrial fibrillation Status: Acute (5) Essential hypertension: Code(s): I10 - Essential (primary) hypertension Status: Acute (6) Type 2 diabetes mellitus with hyperglycemia, without long-term current use of insulin: Code(s): E11.65 - Type 2 diabetes mellitus with hyperglycemia Status: Acute (7) COPD with exacerbation: Code(s): J44.1 - Chronic obstructive pulmonary disease with (acute) exacerbation Status: Acute (8) 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 Tolerating clear liquids. Cholecystostomy tube placed yesterday. Advancing to heart healthy diet for lunch. Exam GI: Inspection: non-distended, obesity and other (CCX drain with minimal brown bilious output) GI Palp: Yes Soft to palpation, Yes Tenderness to palpation present (GI) (mild RUQ), No Guarding due to palpation present (GI) and No Rebound tenderness present Auscultation: normal bowel sounds Objective Data Vital Signs Vital Signs: Vital Signs - 24 hr 09/24/22 12:00 09/24/22 12:00 09/24/22 12:00 Temperature 38.1 C H Pulse Rate 105 H 105 H 105 H Respiratory Rate 22 H 22 H Blood Pressure 106/60 Pulse Oximetry 96 96 Oxygen Delivery BiPAP Oxygen Flow Rate Fraction of Inspired Oxygen 50 09/24/22 13:20 09/24/22 13:20 09/24/22 15:42 Temperature Pulse Rate 116 H 95 Respiratory Rate 22 H 22 H Blood Pressure Pulse Oximetry 94 93 Oxygen Delivery BiPAP Nasal Cannula Oxygen Flow Rate 2 Fraction of Inspired Oxygen 28 09/24/22 16:00 09/24/22 16:00 09/24/22 16:00 Temperature 37.6 C H Pulse Rate 99 99 99 Respiratory Rate 19 19 Blood Pressure 119/103 H Pulse Oximetry 93 93 Oxygen Delivery Nasal Cannula Oxygen Flow Rate 2 Fraction of Inspired Oxygen 09/24/22 14:00 09/24/22 14:00 09/24/22 18:00 Temperature 37.8 C H Pulse Rate 93 93 88 Respiratory Rate 19 Blood Pressure 117/63 Pulse Oximetry 96 Oxygen Delivery Oxygen Flow Rate Fraction of Inspired Oxygen 09/24/22 18:00 09/24/22 20:03 09/24/22 20:04 Temperature Pulse Rate 88 91 Respiratory Rate 19 22 H Blood Pressure 125/65 Pulse Oximetry 94 94 Oxygen Delivery Nasal Cannula Oxygen Flow Rate 2 Fraction of Inspired Oxygen 28 09/24/22 20:11 09/24/22 20:19 09/24/22 20:00 Temperature Pulse Rate 95 95 91 Respiratory Rate 22 H 23 H Blood Pressure Pulse Oximetry 99 Oxygen Delivery Nasal Cannula Oxygen Flow Rate 2 Fraction of Inspired Oxygen 09/24/22 20:00 09/24/22
[2022-09-25 11:36] LABS: Glucose Point of Care 233 mg/dl (65-105)
[2022-09-25] MEDS: INSULIN ASPART (*BKC) 100 UNITS/ML SUB-Q (11:39)
--- NOTE | 2022-09-25 15:58 | PM.IMPN ---
Progress Note: A&P Assessment and Plan (1) Acute respiratory failure: Code(s): J96.00 - Acute respiratory failure, unspecified whether with hypoxia or hypercapnia Status: Acute Assessment and Plan: Patient has developed acute respiratory failure on the morning of 09/24. He did receive 3 L of IV fluid in the ED so likely pulmonary edema with COPD and untreated RAJAN. Stat ABG shows 7.27/54/85. He was placed on BiPAP. Echo showing EF 45-50% with grade I diastolic dysfunction. He is on broad spectrum IV abx. Troponin mildly elevated related to sepsis picture and respiratory failure. He had clinical improvement and was able to be weaned off BiPAP. (2) Acute cholecystitis: Code(s): K81.0 - Acute cholecystitis Status: Acute Assessment and Plan: The patient has CT findings and physical exam consistent with acute cholecystitis. The patient was made NPO. He was started on Zosyn. WBC was 18K but trending down now. BCx 09/24 pending. Cholecystostomy tube placed 09/24; Cholecystic fluid culture is pending. Continue Zosyn. GenSurg following and appreciate their input. (3) Sepsis: Qualifiers: Sepsis type: sepsis due to unspecified organism Sepsis acute organ dysfunction status: with acute organ dysfunction Severe sepsis acute organ dysfunction type: acute respiratory failure Acute respiratory failure type: with hypoxia Severe sepsis shock status: without septic shock Qualified Code(s): A41.9 - Sepsis, unspecified organism; R65.20 - Severe sepsis without septic shock; J96.01 - Acute respiratory failure with hypoxia Code(s): A41.9 - Sepsis, unspecified organism Status: Acute Assessment and Plan: Sepsis present on admission with lactic acidosis, leukocytosis, tachycardia, resp failure and fever. As above. Related to acute cholecystitis. Symptoms improving. (4) COPD with exacerbation: Code(s): J44.1 - Chronic obstructive pulmonary disease with (acute) exacerbation Status: Acute Assessment and Plan: The patient had evidence of acute COPD exacerbation with symptoms over the last 6-8 weeks. He was placed on scheduled nebulizers with albuterol and Atrovent. Patient would benefit from inhaled corticosteroid/ long-acting beta agonist on discharge for chronic control of his COPD. Steroids held. No further wheezing. Continue nebs. (5) Atrial fibrillation: Code(s): I48.91 - Unspecified atrial fibrillation Status: Acute Assessment and Plan: Patient has a hx of AFib but EKG more consistent with sinus tachycardia on 09/24 related to the fever and resp distress. Metoprolol IV once given with improvement. Sotalol continued. He is also on metoprolol on home med list but will verified. Eliquis resumed. Monitor closely on tele. (6) Type 2 diabetes mellitus with hyperglycemia, without long-term current use of insulin: Code(s): E11.65 - Type 2 diabetes mellitus with hyperglycemia Status: Acute Assessment and Plan: A1c of 7.4%. The patient's blood glucose was reviewed on 09/25 Glucose remains elevated at times but better overall. Continue AccuCheks covering with sliding scale. Hypoglycemia protocol available as needed. Continue to monitor (7) Parkinsons disease: Code(s): G20 - Parkinson's disease Status: Acute Assessment and Plan: Stable. Sinemet resumed. (8) Essential hypertension: Code(s): I10 - Essential (primary) hypertension Status: Acute Assessment and Plan: Patient's blood pressure was reviewed on 09/25 Blood pressure remains well controlled. Will continue to monitor (9) Obstructive sleep apnea: Code(s): G47.33 - Obstructive sleep apnea (adult) (pediatric) Status: Acute Assessment and Plan: Patient has untreated RAJAN probably contributing to his above symptoms. Further assessment once he is more stable. He may benefit from nocturnal O2. Contineu BiPAP at n
[2022-09-25 16:50] LABS: Glucose Point of Care 163 mg/dl (65-105)
--- NOTE | 2022-09-25 18:14 | PC.NURSE ---
This patient, Ted Barboza, was transferred to [facility] [place] on 09/25/22 at 1805. Personal belongings sent with patient. Report given to accepting RN. Appropriate documentation sent with patient.
--- NOTE | 2022-09-25 18:30 | PC.NURSE ---
This patient, Ted Barboza, was received from ICU on 09/25/22 at 1833. Patient oriented to unit policies and routines.Call light within reach. Patient states he has not pain or needs at this time.
[2022-09-25 20:42] LABS: Glucose Point of Care 199 mg/dl (65-105)
[2022-09-25 22:12] LABS: Glucose Point of Care 210 mg/dl (65-105)
[2022-09-26] VITALS (22 sets, daily range): BP systolic 128–158; BP diastolic 68–89; PULSE 78–99; RESP 14–28; TEMP 36.1–37.3; O2SAT 86–100
[2022-09-26] MEDS: PIPERACILLN/TAZ 3.375GM/NS50ML 3.375 GM/50 ML BAG IVPB ×4 (00:10→17:09)
--- NOTE | 2022-09-26 03:12 | PCRCNOTE ---
pt was placed on BIPAP 2210. pt refuse to continue BIPAP at 0310. pt placed on 1 Liter NC.
[2022-09-26 06:21] LABS: Basophils Percent Auto 0.2 % (0.2-1.2); Eosinophils Absolute Auto 0.1 K/mm3 (0-0.3); Eosinophils Percent Auto 0.6 % (0-4.4); Hematocrit 37.7 % (42.0-52.0); Hemoglobin 11.9 g/dL (14.0-18.0); Immature Granulocyte Absolute 0.06 K/mm3 (0.00-0.031); Immature Granulocyte Percent A 0.6 % (0-0.5); Lymphocytes Absolute Auto 1.05 K/mm3 (0.9-3.2); Lymphocytes Percent Auto 10.5 % (18.3-44.2); Mean Corpuscular HGB Conc 31.6 g/dl (32-36); Mean Corpuscular Hemoglobin 29.8 pg (26-34); Mean Corpuscular Volume 94.5 fl (80-100); Mean Platelet Volume 10.4 fl (7.4-10.4); Monocytes Absolute Auto 0.6 K/mm3 (0.1-0.6); Monocytes Percent Auto 5.5 % (2.6-8.5); Neutrophils Absolute Auto 8.3 K/mm3 (1.3-6.7); Neutrophils Percent Auto 82.6 % (45.5-73.1); Platelet Count Result 217 k/mm3 (150-375); Red Blood Count 3.99 M/mm3 (4.6-6.20); Red Cell Distribution Width 13.2 % (11.5-14.5)
[2022-09-26 06:32] LABS: Alanine Aminotransferase 11 U/L (6-50); Albumin Level 3.1 g/dL (3.5-5.1); Alkaline Phosphatase 41 U/L (38-126); Anion Gap 4 mmol/L (8-16); Aspartate Amino Transferase 21 U/L (17-59); Bilirubin,Total 0.6 mg/dL (0.2-1.3); Blood Urea Nitrogen 15 mg/dL (9-20); Calcium 7.6 mg/dL (8.4-10.2); Carbon Dioxide 30 mmol/L (22-30); Chloride 99 mmol/L (98-107); Estimated CRCL calculation 113 ml/min; Estimated Glomerular Filt Rate > 60; Glucose 164 mg/dL (65-110); Magnesium 2.5 mg/dL (1.6-2.3); Phosphorus 2.3 mg/dL (2.5-4.5); Potassium 3.8 mmol/L (3.4-5.0); Sodium 133 mmol/L (137-145)
[2022-09-26] MEDS: IPRATROPIUM BR 0.02% INH SOLN 0.5 MG/2.5 ML VIAL INHALATION ×3 (07:46→19:27)
[2022-09-26] MEDS: ALBUTEROL SULFATE NEB 2.5 MG/3 ML INH 5 MG INHALATION (07:47)
[2022-09-26] MEDS: CARBIDOPA/LEVODOPA 25/100 MG TABLET 2 TABLET PO ×3 (08:49→17:08)
[2022-09-26] MEDS: APIXABAN 5 MG TABLET PO ×2 (08:50→20:40)
[2022-09-26] MEDS: SOTALOL HCL 80 MG TABLET PO ×2 (08:50→20:40)
[2022-09-26] MEDS: PANTOPRAZOLE SODIUM IV 40 MG VIAL IV PUSH (08:51)
[2022-09-26 09:07] LABS: Glucose Point of Care 189 mg/dl (65-105)
--- NOTE | 2022-09-26 09:55 | PM.PNGS ---
Progress Note: A&P Assessment and Plan (1) Acute cholecystitis: Code(s): K81.0 - Acute cholecystitis Status: Acute Assessment and Plan: Improving after cholecystostomy tube placement 09/24/22 Continue antibiotics Blood cultures and bile cultures pending--Gram neg bacilli so far Surgically stable for discharge in next 1-2 days once antibiotics are figured out (2) Sepsis: Qualifiers: Sepsis type: sepsis due to unspecified organism Sepsis acute organ dysfunction status: with acute organ dysfunction Severe sepsis acute organ dysfunction type: acute respiratory failure Acute respiratory failure type: with hypoxia Severe sepsis shock status: without septic shock Qualified Code(s): A41.9 - Sepsis, unspecified organism; R65.20 - Severe sepsis without septic shock; J96.01 - Acute respiratory failure with hypoxia Code(s): A41.9 - Sepsis, unspecified organism Status: Acute Assessment and Plan: improved with antibiotics and source control (3) Acute respiratory failure: Code(s): J96.00 - Acute respiratory failure, unspecified whether with hypoxia or hypercapnia Status: Resolved (4) Atrial fibrillation with RVR: Code(s): I48.91 - Unspecified atrial fibrillation Status: Acute (5) Essential hypertension: Code(s): I10 - Essential (primary) hypertension Status: Acute (6) Type 2 diabetes mellitus with hyperglycemia, without long-term current use of insulin: Code(s): E11.65 - Type 2 diabetes mellitus with hyperglycemia Status: Acute (7) COPD with exacerbation: Code(s): J44.1 - Chronic obstructive pulmonary disease with (acute) exacerbation Status: Acute (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 Pain improving. No more fevers since yesterday. Exam GI: Inspection: non-distended, obesity and other (CCX drain with minimal brown bilious output) GI Palp: Yes Soft to palpation, Yes Tenderness to palpation present (GI) (mild RUQ), No Guarding due to palpation present (GI) and No Rebound tenderness present Auscultation: normal bowel sounds Objective Data Vital Signs Vital Signs: Vital Signs - 24 hr 09/25/22 10:00 09/25/22 10:00 09/25/22 12:00 Temperature 37.8 C H Pulse Rate 107 H 105 H 99 Respiratory Rate 21 H Blood Pressure 137/81 Pulse Oximetry 90 Oxygen Delivery Oxygen Flow Rate Fraction of Inspired Oxygen 09/25/22 12:00 09/25/22 12:00 09/25/22 14:00 Temperature 38.0 C H Pulse Rate 102 H 102 H 88 Respiratory Rate 22 H 22 H Blood Pressure 134/72 Pulse Oximetry 94 100 Oxygen Delivery Nasal Cannula Oxygen Flow Rate 2 Fraction of Inspired Oxygen 09/25/22 14:00 09/25/22 15:00 09/25/22 16:00 Temperature 38.2 C H Pulse Rate 88 97 97 Respiratory Rate 22 H 28 H Blood Pressure 129/70 Pulse Oximetry 97 Oxygen Delivery Oxygen Flow Rate Fraction of Inspired Oxygen 09/25/22 16:00 09/25/22 16:00 09/25/22 18:00 Temperature 37.5 C Pulse Rate 97 97 95 Respiratory Rate 21 H 21 H Blood Pressure 96/84 L Pulse Oximetry 94 94 Oxygen Delivery Nasal Cannula Oxygen Flow Rate 2 Fraction of Inspired Oxygen 09/25/22 18:00 09/25/22 18:36 09/25/22 20:20 Temperature 36.8 C Pulse Rate 95 101 H 90 Respiratory Rate 22 H 22 H Blood Pressure 120/66 144/74 H Pulse Oximetry 93 93 Oxygen Delivery Oxygen Flow Rate Fraction of Inspired Oxygen 09/25/22 20:22 09/25/22 20:00 09/25/22 20:00 Temperature Pulse Rate 96 90 96 Respiratory Rate 18 18 Blood Pressure Pulse Oximetry 93 Oxygen Delivery Nasal Cannula Oxygen Flow Rate 4 Fraction of Inspired Oxyge
[2022-09-26] MEDS: ASPIRIN 81 MG ENTERIC TABLET PO (10:30)
[2022-09-26] MEDS: polyethylene glycoL 3350 17 GM POWD.PACK PO (10:30)
[2022-09-26 11:28] LABS: Glucose Point of Care 217 mg/dl (65-105)
[2022-09-26] MEDS: INSULIN ASPART (*BKC) 100 UNITS/ML SUB-Q ×2 (11:46→16:53)
--- NOTE | 2022-09-26 11:57 | PM.IMPN ---
Progress Note: A&P Assessment and Plan (1) Acute respiratory failure: Code(s): J96.00 - Acute respiratory failure, unspecified whether with hypoxia or hypercapnia Status: Resolved Assessment and Plan: Patient has developed acute respiratory failure on the morning of 09/24. He did receive 3 L of IV fluid in the ED so likely pulmonary edema with COPD and untreated RAJAN. Stat ABG shows 7.27/54/85. He was placed on BiPAP. Echo showing EF 45-50% with grade I diastolic dysfunction. He is on broad spectrum IV abx. Troponin mildly elevated related to sepsis picture and respiratory failure. He had clinical improvement and was able to be weaned off BiPAP. He remains on 2L. Humidify air. [place] spray for the mild epistaxis. Wean o2 as toelrated. Encourage IS use. (2) Acute cholecystitis: Code(s): K81.0 - Acute cholecystitis Status: Acute Assessment and Plan: The patient has CT findings and physical exam consistent with acute cholecystitis. The patient was made NPO. Started on Zosyn. -WBC was 18K but trending down now. -BCx 09/24 positive for EColi in 1 bottle -Cholecystostomy tube placed 09/24 -Cholecystic fluid culture positive for EColi. Continue Zosyn. GenSurg following and appreciate their input. (3) Sepsis: Qualifiers: Sepsis type: sepsis due to unspecified organism Sepsis acute organ dysfunction status: with acute organ dysfunction Severe sepsis acute organ dysfunction type: acute respiratory failure Acute respiratory failure type: with hypoxia Severe sepsis shock status: without septic shock Qualified Code(s): A41.9 - Sepsis, unspecified organism; R65.20 - Severe sepsis without septic shock; J96.01 - Acute respiratory failure with hypoxia Code(s): A41.9 - Sepsis, unspecified organism Status: Acute Assessment and Plan: Sepsis present on admission with lactic acidosis, leukocytosis, tachycardia, resp failure and fever. Related to acute cholecystitis. Symptoms improving. As above. (4) COPD with exacerbation: Code(s): J44.1 - Chronic obstructive pulmonary disease with (acute) exacerbation Status: Acute Assessment and Plan: The patient had evidence of acute COPD exacerbation with symptoms over the last 6-8 weeks. He was placed on scheduled nebulizers with albuterol and Atrovent. Patient would benefit from inhaled corticosteroid/ long-acting beta agonist on discharge for chronic control of his COPD. Steroids held. No further wheezing. Continue nebs but begin to wean. Wean O2 as tolerated (5) Atrial fibrillation: Code(s): I48.91 - Unspecified atrial fibrillation Status: Acute Assessment and Plan: Patient has a hx of AFib but EKG more consistent with sinus tachycardia on 09/24 related to the fever and resp distress. Metoprolol IV once given with improvement. Sotalol continued. He is also on metoprolol at home which was verified. Eliquis resumed. Monitor closely on tele. Resume metoprolol. (6) Type 2 diabetes mellitus with hyperglycemia, without long-term current use of insulin: Code(s): E11.65 - Type 2 diabetes mellitus with hyperglycemia Status: Acute Assessment and Plan: A1c of 7.4%. The patient's blood glucose was reviewed on 09/26 Glucose remains elevated at times but better overall. Continue AccuCheks covering with sliding scale. Hypoglycemia protocol available as needed. Continue to monitor (7) Parkinsons disease: Code(s): G20 - Parkinson's disease Status: Acute Assessment and Plan: Stable. Continue Sinemet. Start PT/OT (8) Essential hypertension: Code(s): I10 - Essential (primary) hypertension Status: Acute Assessment and Plan: Patient's blood pressure was reviewed on 09/26 Blood pressure remains well controlled. Will continue to monitor (9) Obstructive sleep apnea: Code(s): G47.33 - Obstructive sleep apnea (adult) (pediatric) St
[2022-09-26] MEDS: METOPROLOL TARTRATE 25 MG TABLET PO ×2 (12:44→20:39)
[2022-09-26] MEDS: DOCUSATE SODIUM 100 MG CAPSULE PO ×2 (12:44→20:39)
[2022-09-26] MEDS: ALBUTEROL SULFATE NEB 2.5 MG/3 ML INH INHALATION ×2 (14:23→19:26)
[2022-09-26 16:26] LABS: Glucose Point of Care 234 mg/dl (65-105)
[2022-09-26 20:09] LABS: Glucose Point of Care 227 mg/dl (65-105)
[2022-09-27] VITALS (11 sets, daily range): BP systolic 145–171; BP diastolic 73–78; PULSE 75–87; RESP 14–20; TEMP 36.1; O2SAT 91–95
[2022-09-27] MEDS: PIPERACILLN/TAZ 3.375GM/NS50ML 3.375 GM/50 ML BAG IVPB ×3 (00:02→18:15)
[2022-09-27 06:31] LABS: Basophils Percent Auto 0.2 % (0.2-1.2); Eosinophils Absolute Auto 0.1 K/mm3 (0-0.3); Hematocrit 36.6 % (42.0-52.0); Hemoglobin 11.8 g/dL (14.0-18.0); Immature Granulocyte Absolute 0.08 K/mm3 (0.00-0.031); Immature Granulocyte Percent A 0.9 % (0-0.5); Lymphocytes Absolute Auto 1.14 K/mm3 (0.9-3.2); Lymphocytes Percent Auto 12.5 % (18.3-44.2); Mean Corpuscular HGB Conc 32.2 g/dl (32-36); Mean Corpuscular Hemoglobin 29.9 pg (26-34); Mean Corpuscular Volume 92.9 fl (80-100); Mean Platelet Volume 10.4 fl (7.4-10.4); Monocytes Absolute Auto 0.9 K/mm3 (0.1-0.6); Monocytes Percent Auto 9.6 % (2.6-8.5); Neutrophils Absolute Auto 6.9 K/mm3 (1.3-6.7); Neutrophils Percent Auto 75.8 % (45.5-73.1); Platelet Count Result 223 k/mm3 (150-375); Red Blood Count 3.94 M/mm3 (4.6-6.20); Red Cell Distribution Width 13.2 % (11.5-14.5); White Blood Count 9.1 K/mm3 (4.5-10.0)
[2022-09-27 06:39] LABS: Alanine Aminotransferase 11 U/L (6-50); Alkaline Phosphatase 56 U/L (38-126); Anion Gap 2 mmol/L (8-16); Aspartate Amino Transferase 27 U/L (17-59); Bilirubin,Total 0.5 mg/dL (0.2-1.3); Blood Urea Nitrogen 11 mg/dL (9-20); Calcium 7.9 mg/dL (8.4-10.2); Carbon Dioxide 35 mmol/L (22-30); Chloride 98 mmol/L (98-107); Estimated CRCL calculation 98 ml/min; Estimated Glomerular Filt Rate > 60; Glucose 174 mg/dL (65-110); Magnesium 2.3 mg/dL (1.6-2.3); Phosphorus 3.1 mg/dL (2.5-4.5); Potassium 3.7 mmol/L (3.4-5.0); Sodium 135 mmol/L (137-145)
[2022-09-27 07:33] LABS: Glucose Point of Care 183 mg/dl (65-105)
[2022-09-27] MEDS: IPRATROPIUM BR 0.02% INH SOLN 0.5 MG/2.5 ML VIAL INHALATION ×2 (07:36→13:16)
[2022-09-27] MEDS: ALBUTEROL SULFATE NEB 2.5 MG/3 ML INH INHALATION ×2 (07:36→13:15)
[2022-09-27] MEDS: SOTALOL HCL 80 MG TABLET PO (10:06)
[2022-09-27] MEDS: CARBIDOPA/LEVODOPA 25/100 MG TABLET 2 TABLET PO ×3 (10:07→17:56)
[2022-09-27] MEDS: ASPIRIN 81 MG ENTERIC TABLET PO (10:07)
[2022-09-27] MEDS: APIXABAN 5 MG TABLET PO (10:07)
[2022-09-27] MEDS: METOPROLOL TARTRATE 25 MG TABLET PO (10:07)
[2022-09-27] MEDS: DOCUSATE SODIUM 100 MG CAPSULE PO (10:07)
[2022-09-27] MEDS: PANTOPRAZOLE SODIUM IV 40 MG VIAL IV PUSH (10:08)
[2022-09-27 11:18] LABS: Glucose Point of Care 252 mg/dl (65-105)
[2022-09-27] MEDS: INSULIN ASPART (*BKC) 100 UNITS/ML SUB-Q (12:37)
--- NOTE | 2022-09-27 13:43 | PM.PNGS ---
Progress Note: A&P Assessment and Plan (1) Acute cholecystitis: Code(s): K81.0 - Acute cholecystitis Status: Acute Assessment and Plan: Doing well. OK to discharge from surgical standpoint. Will follow up with patient in 2 weeks and plan for cholecystostomy tube cholangiogram. Eventual cholecystectomy if medically stable. (2) Sepsis: Qualifiers: Sepsis type: sepsis due to unspecified organism Sepsis acute organ dysfunction status: with acute organ dysfunction Severe sepsis acute organ dysfunction type: acute respiratory failure Acute respiratory failure type: with hypoxia Severe sepsis shock status: without septic shock Qualified Code(s): A41.9 - Sepsis, unspecified organism; R65.20 - Severe sepsis without septic shock; J96.01 - Acute respiratory failure with hypoxia Code(s): A41.9 - Sepsis, unspecified organism Status: Acute Assessment and Plan: improved with antibiotics and source control (3) Acute respiratory failure: Code(s): J96.00 - Acute respiratory failure, unspecified whether with hypoxia or hypercapnia Status: Resolved (4) Atrial fibrillation with RVR: Code(s): I48.91 - Unspecified atrial fibrillation Status: Acute (5) Essential hypertension: Code(s): I10 - Essential (primary) hypertension Status: Acute (6) Type 2 diabetes mellitus with hyperglycemia, without long-term current use of insulin: Code(s): E11.65 - Type 2 diabetes mellitus with hyperglycemia Status: Acute (7) COPD with exacerbation: Code(s): J44.1 - Chronic obstructive pulmonary disease with (acute) exacerbation Status: Acute (8) halfway current use of anticoagulant: Code(s): Z79.01 - halfway (current) use of anticoagulants Status: Acute Assessment and Plan: Eliquis resumed 09/25 Monitor drain for any signs of bleeding Subjective Subjective Date/Time Seen: 09/27/22 13:43 Interval history: Tolerating diet. No abdominal pain. Bowels moving. Exam GI: Inspection: non-distended, obesity and other (CCX drain with minimal brown bilious output) GI Palp: Yes Soft to palpation, Yes Tenderness to palpation present (GI) (mild RUQ), No Guarding due to palpation present (GI) and No Rebound tenderness present Auscultation: normal bowel sounds Objective Data Vital Signs Vital Signs: Vital Signs - 24 hr 09/26/22 14:24 09/26/22 14:30 09/26/22 14:55 Temperature Pulse Rate 90 91 Respiratory Rate 18 18 Blood Pressure Pulse Oximetry 90 Oxygen Delivery Room Air Oxygen Flow Rate Fraction of Inspired Oxygen 09/26/22 15:00 09/26/22 15:03 09/26/22 16:00 Temperature Pulse Rate 86 Respiratory Rate Blood Pressure Pulse Oximetry 86 L 93 Oxygen Delivery Room Air Nasal Cannula Oxygen Flow Rate 1 Fraction of Inspired Oxygen 09/26/22 16:00 09/26/22 19:28 09/26/22 20:39 Temperature 36.5 C Pulse Rate 78 87 87 Respiratory Rate 26 H 18 Blood Pressure 128/68 Pulse Oximetry 93 Oxygen Delivery Oxygen Flow Rate Fraction of Inspired Oxygen 09/26/22 20:40 09/26/22 20:00 09/26/22 21:39 Temperature 36.3 C L Pulse Rate 87 87 Respiratory Rate 14 Blood Pressure 148/75 H Pulse Oximetry 93 93 Oxygen Delivery Nasal Cannula Oxygen Flow Rate 1 Fraction of Inspired Oxygen 09/26/22 19:38 09/26/22 20:00 09/27/22 00:00 Temperature Pulse Rate 83 84 83 Respiratory Rate 18 Blood Pressure Pulse Oximetry Oxygen Delivery Oxygen Flow Rate Fraction of Inspired Oxygen 09/27/22 04:00 09/27/22 05:00 09/26/22 19:38 Temperature 36.1 C L Pulse Rate 80 79 87 Respiratory Rate 14 18 Blood Pressure 145/73 H Pulse Oximetry 91 95 Oxygen Delivery Nasal Cannula Oxygen Flow Rate 1 Fraction of Inspired Oxygen 09/27/22 07:36 09/27/22 07:36 09/27/22 07:51 Temperature Pulse Rate 77 77 75 Respiratory Rate 18 18 18
--- NOTE | 2022-09-27 14:10 | PCCCNOTE ---
On 09/27/22, the student, [Virgen Link], provided care and completed [facility] documentation on this patient. I have reviewed the student's documentation and agree with the findings.
[2022-09-27 16:47] LABS: Glucose Point of Care 198 mg/dl (65-105)
--- NOTE | 2022-09-27 17:27 | PM.DS ---
DS: Admitting Diagnosis Discharge Date 09/27/22 Admitting Diagnosis Abdominal pain DS: Discharge Diagnosis Discharge Diagnosis (1) Acute respiratory failure: Code(s): J96.00 - Acute respiratory failure, unspecified whether with hypoxia or hypercapnia Status: Resolved (2) Acute cholecystitis: Code(s): K81.0 - Acute cholecystitis Status: Acute (3) Sepsis: Qualifiers: Sepsis type: sepsis due to unspecified organism Sepsis acute organ dysfunction status: with acute organ dysfunction Severe sepsis acute organ dysfunction type: acute respiratory failure Acute respiratory failure type: with hypoxia Severe sepsis shock status: without septic shock Qualified Code(s): A41.9 - Sepsis, unspecified organism; R65.20 - Severe sepsis without septic shock; J96.01 - Acute respiratory failure with hypoxia Code(s): A41.9 - Sepsis, unspecified organism Status: Acute (4) COPD with exacerbation: Code(s): J44.1 - Chronic obstructive pulmonary disease with (acute) exacerbation Status: Acute (5) Atrial fibrillation: Code(s): I48.91 - Unspecified atrial fibrillation Status: Acute (6) Type 2 diabetes mellitus with hyperglycemia, without long-term current use of insulin: Code(s): E11.65 - Type 2 diabetes mellitus with hyperglycemia Status: Acute (7) Parkinsons disease: Code(s): G20 - Parkinson's disease Status: Acute (8) Essential hypertension: Code(s): I10 - Essential (primary) hypertension Status: Acute (9) Obstructive sleep apnea: Code(s): G47.33 - Obstructive sleep apnea (adult) (pediatric) Status: Acute (10) Dehydration: Code(s): E86.0 - Dehydration Status: Acute DS: Summary Hospital Course Reason for hospitalization: 77yo male with pAFib on chronic anticoagulation,?CAD, COPD, untreated RAJAN and DM who presented to the ER from home via private vehicle due to right-sided abdominal pain.?Please see H&P for details. Hospital Course: The patient presented with complaints of abdominal pain and had CT findings and physical exam consistent with acute cholecystitis.? The patient was made NPO and started on Zosyn. General surgery was consulted. Patient developed acute respiratory failure on the morning of 09/24.? He did receive 3 L of IV fluid in the ED so likely pulmonary edema with COPD and untreated RAJAN.? Stat ABG showed 7.27/54/85.? He was placed on BiPAP. Echo showing EF 45-50% with grade I diastolic dysfunction. Troponin mildly elevated related to sepsis picture and respiratory failure. He had clinical improvement and was able to be weaned off BiPAP during the day. He was encouraged to wear the BiPAP at night but he refused. He was weaned to room air. Cholecystostomy tube placed 09/24. WBC was 18K but trended to normal. UCx was negative. BCx (1 of 2 sets) positive for EColi in aerobic bottle that was matute-sensitive. Cholecystic fluid culture positive for matute-sensitive EColi and Clostridium. The patient had evidence of acute COPD exacerbation with symptoms over the last 6-8 weeks. He was placed on scheduled nebulizers with albuterol and Atrovent.? His symptoms improved. Patient has a hx of AFib but EKG more consistent with sinus tachycardia on 09/24 related to the fever and respiratory distress. Metoprolol IV once given with improvement. Sotalol continued. He is also on metoprolol at home which was verified and resumed. Eliquis resumed. A1c of 7.4%.? The patient's blood glucose was monitored with AccuCheks covering with sliding scale.? Hypoglycemia protocol was available as needed.? Patient has untreated RAJAN probably contributing to his respiratory symptoms. he was refusing BiPAP so we held on further evaluation. Plan for home to complete 10 days of abx (from source control). He overall did well and was able to be discharged home on 09/27/22 Status at Discharge Cognitive/behavioral status at discharge: stable Time Sp
== END 2022-09-27 19:11 | disposition home or self-care (01) | DRG 871 ==
LOC: ANHED 09-24 00:16 → ANH2MED 09-24 01:17 → ANHICU 09-24 08:44 → ANH3MEDSUR 09-25 18:19
PROVIDERS: Internal Medicine; Admitting Provider Internal Medicine; Emergency Provider Emergency Medicine; PCP Family Medicine; Visit Provider Internal Medicine
DX: A41.51 Sepsis due to Escherichia coli [E. coli] (principal); J96.01 Acute respiratory failure with hypoxia; K81.0 Acute cholecystitis; J44.1 Chronic obstructive pulmonary disease with (acute) exacerbation; R65.20 Severe sepsis without septic shock; B96.7 Clostridium perfringens [C. perfringens] as the cause of diseases classified elsewhere; E11.65 Type 2 diabetes mellitus with hyperglycemia; G20 Parkinson's disease; G47.33 Obstructive sleep apnea (adult) (pediatric); E11.42 Type 2 diabetes mellitus with diabetic polyneuropathy; I10 Essential (primary) hypertension; E86.0 Dehydration; I25.10 Atherosclerotic heart disease of native coronary artery without angina pectoris; E78.5 Hyperlipidemia, unspecified; I48.0 Paroxysmal atrial fibrillation; E66.9 Obesity, unspecified; Z96.653 Presence of artificial knee joint, bilateral; Z68.38 Body mass index [BMI] 38.0-38.9, adult; Z79.01 Long term (current) use of anticoagulants; Z95.5 Presence of coronary angioplasty implant and graft; Z87.891 Personal history of nicotine dependence; I25.2 Old myocardial infarction
CPT/HCPCS: 36415; 36600; 47490; 71045; 74177; 80053; 81003; 82375; 82805; 82948; 83050; 83605; 83690; 83735; 83880; 84100; 84145; 84484; 85025; 85610; 85730; 86140; 87040; 87070; 87075; 87076; 87077; 87086; 87186; 87205; 93005; 94002; 94003; 94640; 96361; 96365; 96375; 97161; 97165; 99285; A9270; C1729; C8929; C9113; J0131; J1170; J1815; J2270; J2543; J3475; J7030; Q9957; Q9967

== ENCOUNTER 2022-10-12 08:54 | Outpatient (CLI) | payer MEDICARE, OTHER, SELFPAY ==
--- NOTE | ~2022-10-12 | XR_ITS ---
EXAMINATION: XR catheter cholangiogram DATE: 10/12/2022 09:51 INDICATION: Acute cholecystitis post percutaneous cholecystostomy tube placement. TECHNIQUE: 20 mL Omnipaque 240 contrast was injected into the patient's existing percutaneous cholecy stostomy tube with intermittent fluoroscopy. The catheter was flushed with 20 mL sterile saline and a dditional fluoroscopic image was obtained. The catheter was then reattached to gravity drainage. A to susan of 4 fluoroscopic images were recorded. The amount of fluoroscopy time used during this procedure was 0.2 minutes. Total DAP was 4.429 mGycm^2 COMPARISON: None. FINDINGS: Contrast fills the gallbladder and extension of the patent cystic and common bile duct into the duodenum. There is reflux of contrast through a patent common hepatic duct into the central bili jojo tree which appears unremarkable. No lucent filling defects identified to suggest choledocholithia sis. IMPRESSION: 1. Normal appearance of the patent cystic, common hepatic and common bile ducts with no evident lemuel docholithiasis. Reviewed, dictated and finalized at location A. IMPRESSION: 1. Normal appearance of the patent cystic, common hepatic and common bile ducts with no evident choledocholithiasis.
== END 2022-10-12 08:55 | disposition home or self-care (01) ==
PROVIDERS: PCP Family Medicine; Visit Provider Surgery
DX: K81.0 Acute cholecystitis (principal)
CPT/HCPCS: 47531; Q9966

== ENCOUNTER 2022-11-05 10:45 | Outpatient (CLI) | payer MEDICARE, OTHER, SELFPAY ==
--- NOTE | 2022-11-05 11:00 | ECG_ITS ---
Measurements Intervals [place] Rate: 77 P: 51 OK: 174 QRS: 11 QRSD: 82 T: 5 QT: 366 QTc: 414 Interpretive Statements SINUS RHYTHM LOW QRS VOLTAGE IN PRECORDIAL LEADS BASELINE ARTIFACT- I, II, III, AVR, AVL, AVF BORDERLINE ECG NO PREVIOUS ECG AVAILABLE FOR COMPARISON Electronically Signed On 11-05-2022 13:09:02 CDT by Homero Kim D.O.
[2022-11-05 11:51] LABS: Amylase 61 U/L (30-110)
== END 2022-11-05 10:46 | disposition home or self-care (01) ==
LOC: ANHSURGERY 10:51
PROVIDERS: PCP Family Medicine; Visit Provider Surgery
DX: K81.0 Acute cholecystitis (principal); I10 Essential (primary) hypertension; I48.91 Unspecified atrial fibrillation; Z01.818 Encounter for other preprocedural examination; R94.31 Abnormal electrocardiogram [ECG] [EKG]
CPT/HCPCS: 36415; 82150; 86850; 86900; 86901; 93005

== ENCOUNTER 2022-11-12 02:50 | Day surgery (SDC) | payer MEDICARE, OTHER, SELFPAY ==
[2022-11-03 15:32] VITALS: BMI 37.4
--- NOTE | 2022-11-03 16:09 | PC.NURSE ---
Report to the Outpatient Waiting Room, entrance under the green pavilion located off [facility], at time __10:00AM on date __11/12/22 . Planned Procedure Time: __12:00PM . Time changes happen often and if your time is changed the preop area will call you the afternoon before. - You and your visitor will be asked to self-screen and do not enter if you have any COVID symptoms. - A mask is optional within the hospital at this time. Patients may have clear liquids (water, carbonated beverages, clear teas, apple juice) until 3 hours prior to surgery with a maximum of 20 ounces. - No food from midnight until time of surgeryd. Take the following medications with a SIP of water the morning of surgery: __CARBIDOPA-LEVODOPA, GABAPENTIN, METOPROLOL, SOTALOL, ALBUTEROL INHALER NEEDED DO NOT STOP ANY OF YOUR OTHER PRESCRIPTION MEDICATIONS PRIOR TO SURGERY ?EXCEPT THE FOLLOWING Medications to discontinue per physician __HOLD ELIQUIS 3 DAYS PRE-OP- LAST DOSE 11/08/[address] HOGAN(PER PATIENT). HOLD ALL VITAMINS/SUPPLEMENTS 3 DAYS PRE-OP PER ANESTHESIA- LAST DOSE 11/08/22 Please no make-up, nail equatorial guinean, hairspray, perfume, deodorant, or body powder the day of surgery. No jewelry (including any body piercings) or valuables the day of surgery, leave them at home. Please take a shower or bath the night before, or the morning of, surgery with an antibacterial soap. Wear comfortable, loose fitting clothing. Children are encouraged to wear pajamas. - Jewelry must be removed prior to entering the operating room. Rings and piercings that are not removed may be cut off. - The hospital will not accept responsibility for valuables. - Please leave all valuables, including medications, at home the day of surgery. If you are going home after surgery, a licensed rickshaw driver must drive you home. - NO public transportation without another adult if you receive anesthesia. - We recommend that an adult stay with you for 24 hours following discharge. - We also recommend that you do not drive, make important decision, drink alcoholic beverages, or take any drugs that were not prescribed by your health care provider for at least 24 hours after your discharge time. Follow any additional instructions given to you from your surgeon. HIBICLENS SHOWER ON MORNING OF SURGERY If you or anyone in your household have experienced Covid symptoms in the past week, please notify your surgeon or the nurse liaison at the phone number below for possible testing. Telephone instructions given to __PATIENT and asked if any additional questions and then verbalized understanding. Patient advised to call surgeon office or pre surgery nurse liaison [phone] if any additional questions.
--- NOTE | 2022-11-11 09:06 | WPDANESEPPF ---
Anes - Initial Pre Proc Eval Procedure: Operation Date: 11/12/22 12:00 Proposed Procedures p Laparoscopic Cholecystectomy, Possible Open - Mukesh Nagel DO Date/Time: 11/11/22 09:06 Surgeon: Mukesh Nagel DO Pre Op Diagnosis: acute cholecystitis Patient Data Age: 77 Gender: M Height: 1.75 m Weight: 115 kg Allergies Allergy/AdvReac Type Severity Reaction Status Date / Time No Known Allergies Allergy Verified 11/03/22 15:11 Home Medications Medication Instructions Recorded Confirmed Type apixaban 5 mg tablet (Eliquis) 5 mg PO BID 09/24/22 11/03/22 History aspirin 81 mg tablet,delayed 81 mg PO DAILY 09/24/22 11/03/22 History release carbidopa 25 mg-levodopa 100 mg 2 tablet PO TID 09/24/22 11/03/22 History tablet gabapentin 600 mg tablet 600 mg PO Q8H 09/24/22 11/03/22 History lisinopril 10 mg tablet 10 mg PO QAM 09/24/22 11/03/22 History metformin 500 mg tablet 1,000 mg PO BID 09/24/22 11/03/22 History metoprolol tartrate 25 mg tablet 25 mg PO BID 09/24/22 11/03/22 History simvastatin 40 mg tablet 40 mg PO HS 09/24/22 11/03/22 History sotalol 80 mg tablet 80 mg PO BID 09/24/22 11/03/22 History acetaminophen 650 mg 1,300 mg PO Q12H PRN Pain 11/03/22 11/03/22 History tablet,extended release albuterol sulfate 90 mcg/actuation 2 puff inhalation Q6-8H PRN Dyspnea 11/03/22 11/03/22 History aerosol inhaler cholecalciferol (vitamin D3) 125 125 mcg PO DAILY 11/03/22 11/03/22 History mcg (5,000 unit) capsule fluticasone propionate 50 2 spray intranasal DAILY PRN Runny 11/03/22 11/03/22 History mcg/actuation nasal Nose spray,suspension nitroglycerin 0.4 mg sublingual 0.4 mg sublingual Q5-15M PRN Chest 11/03/22 11/03/22 History tablet (Nitrostat) Pain vitamin B complex (B 1 tablet PO DAILY 11/03/22 11/03/22 History Complex-Vitamin B12 tablet) Patient hx anesthesia problems: none Family hx anesthesia problems: none Results Review: All pre-operative results and documents have been reviewed as part of the pre-operative evaluation. [facility] Past Medical History Medical History Atrial fibrillation status post ablation COPD (chronic obstructive pulmonary disease) Coronary artery disease Diabetic neuropathy Essential hypertension Hearing loss of aging Hyperlipidemia Obstructive sleep apnea intolerant to CPAP Parkinsons disease Type 2 diabetes mellitus Surgical History Surgical History History of bilateral knee replacement History of coronary artery stent placement 2009 stent was placed stent became occluded in 2013 and subsequent 2nd stent was placed managed by Dr. Olsen at [facility] History of sinus surgery History of surgical removal of pilonidal cyst Family History Family History Father Parkinson disease Alzheimer disease Mother Dementia Social History Social History Social History: He lives at home with his of 46 years. 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 He quit smoking when he had his 1st ME. he used to drink 6 did 9 beers a week but quit doing so in proximally 2009. He denies any illicit substance use. He has 2 step sons and twin daughters. Code status: Full code Surrogate decision maker: Smoking packs per day: 2 Smoking cigarettes per day: 40.0 Years smoked: 47 Smoking pack-years: 94.00 Smoking status: Former smoker Tobacco type: cigarettes and cigars Smoking end date: 10/16/08 Additional smoking assessment comments: QUIT CIGARETTES IN 2006, QUIT
[2022-11-12] VITALS (15 sets, daily range): BP systolic 140–178; BP diastolic 77–93; PULSE 69–104; RESP 13–20; TEMP 36.2–36.9; O2SAT 91–97
[2022-11-12] MEDS: ACETAMINOPHEN 500 MG TABLET 1000 MG PO (10:54)
[2022-11-12] MEDS: LACTATED RINGERS 1,000 ML 30 ML IV CONT (10:54)
[2022-11-12] MEDS: KETOROLAC 15 MG/ML VIAL (*BKC) IV PUSH (10:57)
[2022-11-12 11:04] LABS: Glucose Point of Care 156 mg/dl (65-105)
--- NOTE | 2022-11-12 11:31 | WPDHPUPDATE1 ---
History and Physical Update Update Date/Time: 11/12/22 11:31 History and Physical has been reviewed, including an updated exam of the patient. There are NO changes in the patient's condition. Risks, benefits, and alternatives have been discussed and questions answered. Patient agrees to proceed with procedure.
[2022-11-12] MEDS: ceFAZolin 2 GM/D5W 50 ML 2 GM/50 ML BAG IVPB ×2 (12:00→20:23)
--- NOTE | 2022-11-12 13:26 | W.PM.PROC2 ---
Procedure Note - Detailed Date of Procedure 11/12/22 Pre-op Diagnosis acute cholecystitis Post-op Diagnosis Same Procedure Performed Laparoscopic Cholecystectomy Surgeon Mukesh Nagel, DO Anesthesia General and Local (0.5% bupivacaine) Indications This is a 77-year-old man who presents today for laparoscopic cholecystectomy. He had a prior hospitalization about 6 weeks ago for acute cholecystitis. He had signs of sepsis at the time and was higher risk for surgery due to being on anticoagulation. A percutaneous cholecystostomy tube was placed by interventional Radiology and this was managed as an outpatient. It was then removed about 4 weeks ago and patient has been doing well since. Discussions were made with the patient about treatment options and decision was made to proceed with laparoscopic cholecystectomy, possible open. Findings Laparoscopic cholecystectomy was performed. The gallbladder still had some signs of inflammation with many pericholecystic adhesions. Initially there were many omental adhesions around the right lobe of the liver and the body and fundus of the gallbladder. I was able to take these adhesions down using hook electrocautery and blunt dissection. The neck of the gallbladder still appeared very indurated from the inflammatory response. It was difficult at 1st to identify the cystic duct, but with careful dissection I was able to eventually identify the cystic duct and cystic artery. I was able to obtain the critical view of safety and place clips across the cystic duct and artery. The wall of the gallbladder attached to the liver bed was very friable and tore easily with dissection. I was able to remove the majority of the back wall the gallbladder but to ensure that there were no other problems I did cauterize the liver bed and chose to place a 19 round Lam[place] drain. No other significant abnormalities were noted. Description of Procedure Procedure as well as risks, benefits, and alternatives were discussed with patient. Written consent was obtained and placed in chart prior to procedure. The patient was brought back to surgical suite. Patient was placed in supine position on operating table. Time-out was done to confirm patient and procedure. Patient was then intubated by the anesthesia department. Abdomen was prepped and draped in sterile fashion using chlorhexidine prep. 0.5% bupivacaine with epinephrine was infiltrated at each site of incision. A 5 millimeter incision was made near the umbilicus, and a 5 millimeter Optiview trocar was advanced through the abdominal layers under direct visualization. Once inside the abdominal cavity, carbon dioxide was insufflated to create a pneumoperitoneum. The camera was inserted and the abdomen was inspected. No immediate abnormalities were identified. The patient was placed in reverse Trendelenburg position and rotated slightly to the left. An 11 millimeter incision was made in the subxiphoid region, and an 11 millimeter trocar was inserted under direct visualization. Two 5 millimeter incisions were made in the right upper quadrant, and two 5 millimeter trocars were inserted under direct visualization. The gallbladder was identified and grasped at the fundus and retracted superiorly. It was then grasped at the infundibulum retracted laterally. Careful dissection around the neck of the gallbladder was performed using blunt dissection with a [place] grasper and hook electrocautery. The cystic duct was identified, and a window was created behind it. The cystic artery was also identified and a window was created behind it. The critical view of safety was identified, visualizing the cystic duct running directly into the neck of the gallbladder, and the cystic artery running directly into the wall of the gallbladder. A 5 millimeter clip evidence specialist was then used to place 2 clips proximally and 1 clip distally on both the cystic duct and cystic artery. They were then both transec
[2022-11-12 13:40] LABS: Glucose Point of Care 160 mg/dl (65-105)
[2022-11-12] MEDS: fentaNYL CITRATE INJ (*CRX) 100 MCG/2 ML VIAL 25 MCG IV PUSH ×4 (14:38→14:50)
[2022-11-12 16:36] LABS: Glucose Point of Care 170 mg/dl (65-105)
--- NOTE | 2022-11-12 17:19 | PC.NURSE ---
This patient, Ted Barboza, was admitted to [facility] Room 324-02 on 11/12/22 @ 1510. Patient/family oriented to hospital policies and general routines including ID bracelet, bed and alarms, visiting hours, pain management, procedures, bathroom and other care routines, personal items, smoking policy, room service/diet, and visiting hours. Information on how to activate the Rapid Response Team has been discussed. Patient/Family are encouraged to report perceived risks to care and to ask questions if they do not understand what they are told or what they should do.
[2022-11-12] MEDS: CARBIDOPA/LEVODOPA 25/100 MG TABLET 2 TABLET PO (18:27)
[2022-11-12] MEDS: METOPROLOL TARTRATE 25 MG TABLET PO (18:28)
[2022-11-12] MEDS: SOTALOL HCL 80 MG TABLET PO (18:28)
[2022-11-12] MEDS: metFORMIN HCL 500 MG TABLET 1000 MG PO (19:25)
[2022-11-12] MEDS: GABAPENTIN 300 MG CAPSULE 600 MG PO (20:22)
[2022-11-12] MEDS: SIMVASTATIN 20 MG TABLET 40 MG PO (20:22)
[2022-11-12] MEDS: HYDROcodone/acetaminophen (*CRX) 5-325 MG TABLET 1 TAB PO (20:31)
[2022-11-12 21:03] LABS: Glucose Point of Care 334 mg/dl (65-105)
[2022-11-13] MEDS: ceFAZolin 2 GM/D5W 50 ML 2 GM/50 ML BAG IVPB ×2 (04:01→11:38)
[2022-11-13 04:35] VITALS: BP 119/67; PULSE 79; RESP 16; TEMP 36.4; O2SAT 96
[2022-11-13] MEDS: GABAPENTIN 300 MG CAPSULE 600 MG PO (05:15)
[2022-11-13 06:17] LABS: Hematocrit 35.3 % (42.0-52.0); Hemoglobin 11.2 g/dL (14.0-18.0); Mean Corpuscular HGB Conc 31.7 g/dl (32-36); Mean Corpuscular Hemoglobin 29.6 pg (26-34); Mean Corpuscular Volume 93.4 fl (80-100); Mean Platelet Volume 9.7 fl (7.4-10.4); Platelet Count Result 217 k/mm3 (150-375); Red Blood Count 3.78 M/mm3 (4.6-6.20); Red Cell Distribution Width 13.4 % (11.5-14.5); White Blood Count 11.2 K/mm3 (4.5-10.0)
[2022-11-13 06:35] LABS: Anion Gap 6 mmol/L (8-16); Blood Urea Nitrogen 12 mg/dL (9-20); Carbon Dioxide 27 mmol/L (22-30); Chloride 101 mmol/L (98-107); Estimated CRCL calculation 109 ml/min; Estimated Glomerular Filt Rate > 60; Glucose 166 mg/dL (65-110); Potassium 4.1 mmol/L (3.4-5.0); Sodium 134 mmol/L (137-145)
[2022-11-13 08:12] LABS: Glucose Point of Care 178 mg/dl (65-105)
[2022-11-13] MEDS: FLUTICASONE PROPIONATE 0.05% NA SPR 16 GM BTL (*BKC) 2 SPRAY NASAL (08:54)
[2022-11-13 08:55] VITALS: PULSE 86
[2022-11-13] MEDS: SOTALOL HCL 80 MG TABLET PO (08:55)
[2022-11-13 08:56] VITALS: PULSE 86
[2022-11-13] MEDS: lisinopriL 10 MG TABLET PO (08:56)
[2022-11-13] MEDS: METOPROLOL TARTRATE 25 MG TABLET PO (08:56)
[2022-11-13] MEDS: CARBIDOPA/LEVODOPA 25/100 MG TABLET 2 TABLET PO (08:56)
[2022-11-13] MEDS: CHOLECALCIFEROL 1,000 UNITS TABLET 5000 UNITS PO (08:56)
[2022-11-13] MEDS: ASPIRIN 81 MG ENTERIC TABLET PO (08:57)
[2022-11-13] MEDS: metFORMIN HCL 500 MG TABLET 1000 MG PO (08:57)
[2022-11-13] MEDS: HYDROcodone/acetaminophen (*CRX) 5-325 MG TABLET 1 TAB PO (09:00)
--- NOTE | 2022-11-13 10:03 | PM.DS ---
DS: Admitting Diagnosis Discharge Date 11/13/2022 Admitting Diagnosis acute cholecystitis DS: Discharge Diagnosis Discharge Diagnosis (1) Acute cholecystitis: Code(s): K81.0 - Acute cholecystitis Status: Acute Assessment and Plan: status post cholecystectomy, please see full operative report for details, continue routine postoperative care, follow-up with Dr. Hogan in 2 weeks (2) Type 2 diabetes mellitus with hyperglycemia, without long-term current use of insulin: Code(s): E11.65 - Type 2 diabetes mellitus with hyperglycemia Status: Acute Assessment and Plan: stable, continue home medications (3) terminal carman current use of anticoagulant: Code(s): Z79.01 - alf (current) use of anticoagulants Status: Acute Assessment and Plan: okay to resume Eliquis starting tomorrow DS: Summary Hospital Course Reason for hospitalization: acute cholecystitis Hospital Course: The patient is a 77-year-old male with multiple medical issues that had initially presented 6 weeks ago with acute cholecystitis, sepsis. The patient was treated with percutaneous cholecystostomy tube at that time and IV antibiotics. The patient has since had resolution of his symptoms and the drain has been removed. The patient underwent interval cholecystectomy on 11/12, please see full operative report for details of that procedure. The patient also had a drain left given the amount of inflammation in the region. Postoperatively the patient did well and was transferred to the surgical floor. On postoperative day 1. , the patient reports that he is sore however feels well overall. He is tolerating a diabetic diet without issue. He has been up and ambulating without issue. The drain was putting out some moderate serous fluid and was removed. The patient will be discharged home with p.o. analgesia. The patient will follow-up in 2 weeks. Status at Discharge Functional status at discharge: independent ambulation Overall status at discharge: patient is progressing back to baseline Time Spent with Patient Time attestation: Total time spent providing and/or coordinating discharge services: Time spent: Less than 30 minutes Exam Const: General: cooperative, comfortable and no acute distress Resp: Auscultation: clear to auscultation bilaterally Cardio: Rate: regular rate Rhythm: regular rhythm GI: Inspection: normal to inspection, distended and incision GI Palp: Yes abdominal tenderness, Yes Soft to palpation, Yes Tenderness to palpation present (GI), No Guarding due to palpation present (GI) and No Rigid due to palpation Other: TESS c s/s output - removed at bedside DS: Data Data Completed and Pending Pending studies at discharge: Pending at discharge 11/12/22 12:59 Surgical [PTH] Routine Labs on day of discharge: Labs from last 24 hours 11/13/22 11/13/22 11/12/22 08:09 06:08 20:32 WBC 11.2 H RBC 3.78 L Hgb 11.2 L Hct 35.3 L MCV 93.4 MCH 29.6 MCHC 31.7 L RDW 13.4 Plt Count 217 MPV 9.7 Sodium 134 L Potassium 4.1 Chloride 101 Carbon Dioxide 27 Anion Gap 6 L BUN 12 Creatinine 0.60 L Estim Creat Clear Calc 109 Estimated GFR > 60 Glucose 166 H POC Capillary Glucose 178 H 334 H Calcium 8.0 L 11/12/22 11/12/22 11/12/22 16:34 13:38 11:01 WBC RBC Hgb Hct MCV MCH MCHC RDW Plt Count MPV Sodium Potassium Chloride Carbon Dioxide Anion Gap BUN Creatinine Estim Creat Clear Calc Estimated GFR Glucose POC Capillary Glucose 170 H 160 H 156 H Calcium Discharge Plan Discharge Patient Disposition: Home, Self-Care Discharge Instructions: DISCHARGE INSTRUCTION SHEET FOR HERNIA, GALLBLADDER AND APPENDIX SURGERIES DR. HOGAN PATIENT TO TAKE HOME 1. May shower, no soaking in bath x 2weeks. 2. Call office for:
[2022-11-13 12:07] LABS: Glucose Point of Care 206 mg/dl (65-105)
== END 2022-11-13 13:48 | disposition home or self-care (01) ==
LOC: ANHSURGERY 09:50 → ANH3MEDSUR 15:05
PROVIDERS: PCP Family Medicine; Visit Provider Surgery
PROC: 0FT44ZZ Resection of Gallbladder, Percutaneous Endoscopic Approach (ICD-10-PCS; CPT 47562; principal; 2022-11-12 12:00)
DX: K80.00 Calculus of gallbladder with acute cholecystitis without obstruction (principal); E11.65 Type 2 diabetes mellitus with hyperglycemia; I25.10 Atherosclerotic heart disease of native coronary artery without angina pectoris; J44.9 Chronic obstructive pulmonary disease, unspecified; G20 Parkinson's disease; E11.40 Type 2 diabetes mellitus with diabetic neuropathy, unspecified; E78.5 Hyperlipidemia, unspecified; G47.33 Obstructive sleep apnea (adult) (pediatric); Z95.5 Presence of coronary angioplasty implant and graft; Z87.891 Personal history of nicotine dependence; E66.9 Obesity, unspecified; Z68.36 Body mass index [BMI] 36.0-36.9, adult; Z79.01 Long term (current) use of anticoagulants; Z79.82 Long term (current) use of aspirin; Z79.84 Long term (current) use of oral hypoglycemic drugs; Z79.51 Long term (current) use of inhaled steroids
CPT/HCPCS: 47562; 36415; 80048; 82948; 85027; 88304; A9270; J0690; J1100; J1885; J2405; J2704; J3010; J7030; J7120